=== PATIENT | female | born 1960 | race Caucasian/White ===

== ENCOUNTER 2024-09-30 13:52 | Inpatient (IN) | payer OTHER, SELFPAY ==
[2024-09-30] VITALS (13 sets, daily range): BP systolic 120–163; BP diastolic 44–79; PULSE 74–104; RESP 14–20; TEMP 36.4–37; O2SAT 98–100; BMI 24.4
--- NOTE | ~2024-09-30 | US_ITS ---
US renal BI 10/02/2024 09:19 Indication: Renal insufficiency. Hydronephrosis. Procedure: Ultrasound of the kidneys and bladder using transabdominal technique Comparison: CT dated 09/30/2024 Findings: The right kidney is surgically absent. There is moderate left hydronephrosis. No left renal stone is identified. Left kidney measures 11.6 cm in length. The bladder is decompressed, although grossly unremarkable. Impression: 1: Moderate left hydronephrosis. Reviewed, dictated and finalized at location O. Impression: 1: Moderate left hydronephrosis.
--- NOTE | ~2024-09-30 | XR_ITS ---
EXAMINATION: XR retrograde pyelo w/stent LT DATE: 09/30/2024 20:13 INDICATION: Left internal ureteral stent placement TECHNIQUE: Fluoroscopic images from a left internal ureteral stent placement are submitted for review. 15 seconds of fluoroscopy time. FINDINGS: There is a left double-J internal ureteral stent projecting in expected position, with proximal [place] loop at the level of the renal pelvis and distal loop is not visualized.. IMPRESSION: 1. Left internal ureteral stent placement. Please refer to real-time procedural findings for details. Reviewed, dictated and finalized at location O. IMPRESSION: 1. Left internal ureteral stent placement. Please refer to real-time procedur al findings for details.
--- NOTE | ~2024-09-30 | CT_ITS ---
EXAMINATION: CT abdomen pelvis wo con DATE: 09/30/2024 16:40 INDICATION: Abdominal pain TECHNIQUE: Computed tomography (CT) of the abdomen and pelvis was performed without intravenous contrast. Automated exposure control and iterative reconstruction technique were employed. The dose-length product was 252.05 mGy-cm. COMPARISON: 05/31/2013 FINDINGS: Discoid atelectasis/scarring in the right middle lobe. Heart size is normal. No pericardial or pleural effusion. Calcified right lower lobe nodules consistent with old granulomatous disease. Liver, gallbladder, spleen, pancreas and bilateral adrenal glands are normal. Status post right nephrectomy. Moderate left hydroureteronephrosis extending to a 304 mm calcific lesion likely a ureteral stone at the transition point at the level of L5-S1. Bladder is normal. Distal colectomy with left lower quadrant and colostomy. No dilated bowel to suggest obstruction. The uterus is not identified and has likely been surgically resected. No free intraperitoneal gas or fluid. No pathologically enlarged abdominal or pelvic lymphadenopathy. There is however soft tissue density replacing the presacral fat between the Flash pouch, loops of small bowel in the sacrum. L5 spondylolysis with bilateral pars intra-articular is defects, 7 mm anterolisthesis L5 on S1 and associated severe disc height loss with prominen t degenerative endplate changes at this level. IMPRESSION: 1. Obstructing 304 mm left ureteral stone with moderate left hydroureteronephrosis. 2. Status post right nephrectomy and partial colectomy with left lower quadrant and colostomy. 3. Soft tissue density replacing the presacral fat between the heart and pelvic loops of small bowel in the sacrum which could represent postoperative scarring or potentially recurrent malignancy in the appropriate clinical setting. Correlate with prior clinical/operative history. 4. L5 spondylolysis with bilateral pars interarticularis defects, 6 mm anterolisthesis L5 on S1 and spondylosis. Reviewed, dictated and finalized at location A. IMPRESSION: 1. Obstructing 304 mm left ureteral stone with moderate left hydroureteronephro sis. 2. Status post right nephrectomy and partial colectomy with left lower quadrant and colostomy. 3. Soft tissue density replacing the presacral fat between the heart and pelvic loops of small bowel in the sacrum which could represent postoperative scarrin g or potentially recurrent malignancy in the appropriate clinical setting. Elijah gerber with prior clinical/operative history. 4. L5 spondylolysis with bilateral pars interarticularis defects, 6 mm anteroli sthesis L5 on S1 and spondylosis.
--- OUTSIDE RECORDS SUMMARY | 2024-09-30 13:58 | XMS_ITS | Clinical Summary ---
Author Organization [facility] Address [address] [place] [address] Care Team Providers Care Subway Guard Name Role Phone Abdias Rivera MD Primary Care Provider [phone] Social History Tobacco Use Types Packs/Day Years Used Date Smoking Tobacco: Never Assessed Comments Unknown Sex and Gender Information Value Date Recorded Sex Assigned at Not on file Legal Sex Female 7:21 PM CDT Gender Identity Not on file Sexual Orientation Not on file Plan of Treatment Health Maintenance Due Date Last Done Comments Colorectal Cancer Screening Colonoscopy (10 Years) 1958 Hepatitis C 1976 DTaP, Tdap and Td Vaccines ( 1 - Tdap) 1977 Mammogram Screening 1998 Pneumococcal Vaccine: 50+ Ye ars (1 of 1 - PCV) 2008 Zoster Vaccines (1 of 2) 2008 COVID-19 Vaccine ( - 2023-2 5 season) 2023 Dexa Scan (General) 11/12/2023 RSV Immunization or 60+ Years (1 - 1-dose 75+ series) 2033 Meningococcal B Vaccine Aged Out No l onger eligible based on patient's age to complete this topic Meningococcal Vaccine Aged Out No cody liliana eligible based on patient's age to complete this topic RSV Immunizations Under 20 Months Aged Out No longer eligible based on patient's age to complete this topic Care Teams Subway Guard Relationship Specialty Start Date End Date Abdias Rivera MD PCP - General 07/08/15
--- NOTE | 2024-09-30 15:21 | ED.NAVMDI ---
HPI - Nausea/Vomiting/Diarrhea General Chief complaint: Nausea/Vomiting/Diarrhea Stated complaint: vomitingx7 days, pt has ostomy Time Seen by Provider: 09/30/24 15:20 History of Present Illness HPI Narrative: Patient is a 63-year-old female with history cervical cancer that was metastatic to her colon and kidney requiring colon resection and nephrectomy who presents ER with vomiting. Vomiting ongoing for 7 days. Associated with abdominal cramping. No decrease in urination but has noted that it is darker than typical. No change in ostomy output. No chest pain or chest pressure. Related Data Home Medications ?Medication ?Instructions ?Recorded ?Confirmed ?Last Taken ?Type sertraline 100 mg tablet 100 mg PO DAILY 05/01/24 06/10/24 Unknown History sertraline 25 mg tablet 25 mg PO DAILY 05/01/24 06/10/24 Unknown History trazodone 100 mg tablet 100 mg PO QHS PRN 05/01/24 06/10/24 Unknown History Allergies Allergy/AdvReac Type Severity Reaction Status Date / Time clindamycin Allergy Unknown Swelling Verified 09/30/24 13:53 Review of Systems Review of Systems: All systems reviewed & are unremarkable except as noted in HPI and below Constitutional: Constitutional: Reports no additional constitutional complaints ENT: Reports system reviewed and no additional complaints, except as documented Cardiovascular: Cardiovascular: Reports no additional cardiovascular complaints Respiratory: Respiratory: Reports no additional respiratory complaints Gastrointestinal: Gastrointestinal: Reports no additional gastrointestinal complaints [facility] Past Medical History Medical History (Updated 09/30/24 @ 18:52 by Luigi Rodriguez MD) Hyperlipidemia History of colon cancer Hypertension Acute depression Surgical History Surgical History (Updated 06/10/24 @ 11:14 by Suman Boone DO) Colostomy status H/O section Family History Family History Father COPD (chronic obstructive pulmonary disease) CHF (congestive heart failure) Mother Prediabetes Sibling No problems noted. 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 HEAD: Normocephalic, atraumatic. ENT: Mucous membranes moist. CHEST: Clear to auscultation. No respiratory distress. HEART: Regular rate and rhythm. Normal peripheral pulses. ABDOMEN: Soft, nontender, nondistended. EXTREMITIES: Normal range of motion. No edema. SKIN: Warm, dry, no rash. NEURO: Alert and oriented x3. PSYCH: Normal mood and affect. Course Course Emergency Course: Patient with solitary kidney with renal failure. Discussed with Urology, Dr. Adams, he will take patient to the OR tonight patient will need to stay at the hospital. Hospitalist contacted for admission. Vital Signs Vital signs: Vital Signs Temperature 97.6 F 09/30/24 13:55 Pulse Rate 104 H 09/30/24 13:55 Respiratory Rate 17 09/30/24 13:55 Blood Pressure 146/79 H 09/30/24 13:55 Pulse Oximetry 100 09/30/24 13:55 Oxygen Delivery Room Air 09/30/24 13:55 Temperature 97.6 F 09/30/24 13:55 Pulse Rate 74 09/30/24 18:08 Respiratory Rate 18 09/30/24 18:08 Blood Pressure 163/79 H 09/30/24 18:08 Pulse Oximetry 100 09/30/24 18:08 Oxygen Delivery Room Air 09/30/24 13:55 MDM - Nausea/Vomiting/Diarrhea Lab Data 09/30/24 15:30 09/30/24 15:30 Labs: Lab Results 09/30/24 09/30/24 09/30/24 Range/Units 15:30 15:32 16:52 WBC 6.1 (4.5-10.0) K/mm3 RBC 3.36 L (4.2-5.4) M/mm3 Hgb 9.4 L (12.0-15.0) g/dL Hct 30.3 L (37.0-47.0) % MCV 90.2 (80-100) fl MCH 28.0 (26-34) pg MCHC 31.0 L (32-36) g/dl RDW 15.6 H (11.5-14.5) % Plt Count 142 L (150-375) k/mm3 MPV 9.5 (7.4-10.4) fl Immature Gran % (Auto) 0.5 (0-0.5) % Neut % (Auto) 73.5 H (45.5-73.1) % Lymph % (Auto) 19.5 (18.3-44.2) % [place] % (Auto) 5.8 (2.6-8.5) % Eos % (Auto) 0.2 (0-4.4) % Baso % (Auto) 0.5 (0.2-1.2) % Lymph # (Auto) 1.18 (0.9-3.2) K/mm3 [place] # (Auto) 0.4 (0.1-0.6) K/mm3 Eos # (Auto) 0.0 (0-0.3) K/mm3 Baso # (Auto) 0.0 (0.0-0.1) K/mm3 Abs Immat Gran (auto) 0.03 (0.00-0.031) K/mm3 Absolute Neuts (auto) 4.5 (1.3-6.7) K/mm3 Absolute Nucleated RBC 0.000 (0.0-0.012) K/mm3 Nucleated RBC % 0.0 (0.0-0.2) % Sodium 142 (137-145) mmol/L Potassium 4.4 (3.4-5.0) mmol/L Chloride 108 H (98-107) mmol/L Carbon Dioxide 9 L (22-30) mmol/L Anion Gap 25 H (4-12) mmol/L BUN 77 H (7-17) mg/dL Creatinine 7.80 H (0.7-1.0) mg/dL Estim Creat Clear Calc 6 ml/min Estimated GFR 5 L (59 - ) Glucose 86 (65-110) mg/dL Lactic Acid 1.1 (0.7-2.0) mmol/L Calcium 9.8 (8.4-10.2) mg/dL Total Bilirubin 0.6 (0.2-1.3) mg/dL AST 22 (14-36) U/L ALT 12 (6-35) U/L Alkaline Phosphatase 61 (38-126) U/L Total Protein 8.8 H (6.3-8.2) g/dL Albumin 4.9 (3.5-5.1) g/dL Lipase 523 H (23-300) U/L Urine Color Yellow (Yellow) Urine Appearance Cloudy H (Clear) Urine pH 5.0 (5.0-9.0) Ur Specific [place] 1.012 (1.001-1.035) Urine Protein 1+ H (Negative) mg/dL Urine Glucose (UA) Negative (Negative) mg/dL Urine Ketones Trace H (Negative) mg/dL Ur Blood (Man) Trace (Negative) Urine Nitrate Negative (Negative) Urine Bilirubin Negative (Negative) Urine Urobilinogen 0.2 (<2.0) mg/dL Leukocyte Esterase Rfl 2+ H (Negative) ERASTO/UL Urine RBC 0-2 (0-2) /hpf Urine WBC 11-20 H (0-3) /hpf Ur Squamous Epith Cells Occasional (Few) /hpf Urine Bacteria None seen /hpf Urine Casts 3-5 Imaging Data Radiologist's impression: ITS Impressions Abdomen/Pelvis CT 09/30/24 18:05 IMPRESSION: 1. Obstructing 304 mm left ureteral stone with moderate left hydroureteronephrosis. 2. Status post right nephrectomy and partial colectomy with left lower quadrant and colostomy. 3. Soft tissue density replacing the presacral fat between the heart and pelvic loops of small bowel in the sacrum which could represent postoperative scarring or potentially recurrent malignancy in the appropriate clinical setting. Correlate with prior clinical/operative history. 4. L5 spondylolysis with bilateral pars interarticularis defects, 6 mm anterolisthesis L5 on S1 and spondylosis. Discharge Plan Discharge Clinical Impression: FABIEN (acute kidney injury), Ureterolithiasis Patient Disposition: Still a Patient Condition: Stable Patient Language: [place] Verdean Prescriptions: No Action trazodone 100 mg tablet 100 mg PO QHS PRN sertraline 25 mg tablet 25 mg PO DAILY sertraline 100 mg tablet 100 mg PO DAILY rosuvastatin 20 mg tablet 20 mg PO DAILY Qty: 90 1RF cetirizine 10 mg tablet 10 mg PO DAILY PRN (Reason: allergy symptoms) Qty: 90 0RF Follow-up/Referrals: PHYSICIAN,COMMERCIAL REAL ESTATE MANAGER [Primary Care Provider, Internal Medicine]
[2024-09-30 15:37] LABS: Hematocrit 30.3 % (37.0-47.0); Hemoglobin 9.4 g/dL (12.0-15.0); Immature Granulocyte Percent A 0.5 % (0-0.5); Lymphocytes Absolute Auto 1.18 K/mm3 (0.9-3.2); Mean Corpuscular HGB Conc 31.0 g/dl (32-36); Mean Corpuscular Hemoglobin 28.0 pg (26-34); Mean Corpuscular Volume 90.2 fl (80-100); Nucleated Red Blood Cells Absolute Auto 0.000 K/mm3 (0.0-0.012); Nucleated Red Blood Cells Perc 0.0 % (0.0-0.2); Platelet Count Result 142 k/mm3 (150-375); Red Blood Count 3.36 M/mm3 (4.2-5.4); White Blood Count 6.1 K/mm3 (4.5-10.0)
[2024-09-30 15:50] LABS: Alanine Aminotransferase 12 U/L (6-35); Albumin Level 4.9 g/dL (3.5-5.1); Alkaline Phosphatase 61 U/L (38-126); Anion Gap 25 mmol/L (4-12); Aspartate Amino Transferase 22 U/L (14-36); Bilirubin,Total 0.6 mg/dL (0.2-1.3); Blood Urea Nitrogen 77 mg/dL (7-17); Calcium 9.8 mg/dL (8.4-10.2); Carbon Dioxide 9 mmol/L (22-30); Chloride 108 mmol/L (98-107); Estimated CRCL calculation 6 ml/min; Estimated Glomerular Filt Rate 5; Glucose 86 mg/dL (65-110); Lipase 523 U/L (23-300); Potassium 4.4 mmol/L (3.4-5.0); Sodium 142 mmol/L (137-145); Total Protein 8.8 g/dL (6.3-8.2)
--- OUTSIDE RECORDS SUMMARY | 2024-09-30 16:18 | XMS_ITS | Clinical Summary ---
Author Organization [facility] Address [address] [place] [id number] Care Team Providers Care Chemical Plant Technical Director Name Role Phone Abdias Rivera MD Primary Care Provider [phone] Social History Tobacco Use Types Packs/Day Years [...] age to complete this topic Care Teams Chemical Plant Technical Director Relationship Specialty Start Date End Date Abdias Rivera MD PCP - General 07/08/15
[2024-09-30] MEDS: SODIUM CHLORIDE 0.9% IV 1,000 ML 999 ML IV CONT (16:29)
[2024-09-30 17:04] LABS: Add Urine Microscopic? YES; Appearance Urine Cloudy (Clear); Glucose Urine UA Negative (Negative); Leukocyte Esterase Ur 2+ LEU/UL (Negative); Nitrate Urine Negative (Negative); Specific Grav Ur 1.012 (1.001-1.035)
[2024-09-30] MEDS: ONDANSETRON INJ 4 MG/2 ML VIAL IV PUSH (18:08)
[2024-09-30] MEDS: MORPHINE SULFATE (*CRX) 4 MG/ML INJ IV PUSH (18:51)
--- NOTE | 2024-09-30 19:41 | WPDURCON ---
Assessment and Plan Assessment and plan (1) Ureterolithiasis: Code(s): N20.1 - Calculus of ureter Status: Acute Assessment and Plan: LEFT ureteral stone in a solitary kidney: proceed with left ureteral stent placement with delayed stone treatment. Reviewed stent irritation, risks of surgery, and need for follow up stone treatment. All questions answered proceed as scheduled. Urology Consult Note HPI Date Seen: 09/30/24 Requesting Physician: Barrera Adams MD Primary Care Provider: SORTING GRAPPLE OPERATOR PHYSICIAN Consult Narrative Narrative: Amanda Mccabe is a 63 year old female with a history of metastatic cervical cancer, prior right nephrectomy related to malignancy, and a current left sided obstructing 6 mm right mid ureteral stone, significant hydronephrosis, and a creatinine over 7 (baseline 1.03). She has had pain and emesis for about a week. No signs of infection. Review of Systems Review of Systems: All systems reviewed & are unremarkable except as noted in HPI and below (HPI) PMFSH Past Medical History Medical History Hyperlipidemia History of colon cancer Hypertension Acute depression Surgical History Surgical History Colostomy status H/O section Family History Family History Father COPD (chronic obstructive pulmonary disease) CHF (congestive heart failure) Mother Prediabetes Sibling No problems noted. 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 Gender identity (if verbalized by the patient): Female Meds Home Medications and Allergies Home Medications ?Medication ?Instructions ?Recorded ?Confirmed ?Type sertraline 100 mg tablet 100 mg PO DAILY 05/01/24 06/10/24 History sertraline 25 mg tablet 25 mg PO DAILY 05/01/24 06/10/24 History trazodone 100 mg tablet 100 mg PO QHS PRN 05/01/24 06/10/24 History rosuvastatin 20 mg tablet 20 mg PO DAILY #90 tabs 05/28/24 06/10/24 Rx cetirizine 10 mg tablet 10 mg PO DAILY PRN allergy 06/20/24 Rx symptoms #90 tabs Allergies Allergy/AdvReac Type Severity Reaction Status Date / Time clindamycin Allergy Unknown Swelling Verified 09/30/24 13:53 Vital Signs Vital Signs - 24 hr 09/30/24 13:55 09/30/24 15:47 09/30/24 16:31 Temperature 36.4 C Pulse Rate 104 H 74 77 Respiratory Rate 17 15 20 Blood Pressure 146/79 H 160/77 H 163/74 H Pulse Oximetry 100 100 100 Oxygen Delivery Room Air 09/30/24 18:08 Temperature Pulse Rate 74 Respiratory Rate 18 Blood Pressure 163/79 H Pulse Oximetry 100 Oxygen Delivery Exam Narrative: alert oriented conversive non toxic, no focal deficits Results Labs 09/30/24 15:30 09/30/24 15:30 Labs: Short CBC 09/30/24 Range/Units 15:30 WBC 6.1 (4.5-10.0) K/mm3 Hgb 9.4 L (12.0-15.0) g/dL Hct 30.3 L (37.0-47.0) % Plt Count 142 L (150-375) k/mm3 BMP 09/30/24 15:30 Sodium 142 Potassium 4.4 Chloride 108 H Carbon Dioxide 9 L BUN 77 H Creatinine 7.80 H Glucose 86 Calcium 9.8 Liver Function 09/30/24 Range/Units 15:30 Total Bilirubin 0.6 (0.2-1.3) mg/dL AST 22 (14-36) U/L ALT 12 (6-35) U/L Alkaline Phosphatase 61 (38-126) U/L Albumin 4.9 (3.5-5.1) g/dL Urine 09/30/24 Range/Units 16:52 Urine Color Yellow (Yellow) Urine Appearance Cloudy H (Clear) Urine pH 5.0 (5.0-9.0) Ur Specific [place] 1.012 (1.001-1.035) Urine Protein 1+ H (Negative) mg/dL Urine Glucose (UA) Negative (Negative) mg/dL
--- NOTE | 2024-09-30 19:45 | WPDANESEPPF ---
Anes - Initial Pre Proc Eval Procedure: Operation Date: 09/30/24 02:00 Proposed Procedures p Flexible Cystoscopy - Barrera Adams MD Date/Time: 09/30/24 19:45 Surgeon: Barrera Adams MD Pre Op Diagnosis: obstructing left ureteral stone Pre Op Diagnosis: vomitingx7 days, pt has ostomy Patient Data Age: 63 Gender: F Height: 1.63 m Weight: 62.8 kg Last Vital Signs Temp 36.4 C 09/30/24 13:55 Pulse 74 09/30/24 18:08 Resp 18 09/30/24 18:08 BP 163/79 H 09/30/24 18:08 Pulse Ox 100 09/30/24 18:08 O2 Del Method Room Air 09/30/24 13:55 Allergies Allergy/AdvReac Type Severity Reaction Status Date / Time clindamycin Allergy Unknown Swelling Verified 09/30/24 13:53 Home Medications ?Medication ?Instructions ?Recorded ?Confirmed ?Type sertraline 100 mg tablet 100 mg PO DAILY 05/01/24 06/10/24 History sertraline 25 mg tablet 25 mg PO DAILY 05/01/24 06/10/24 History trazodone 100 mg tablet 100 mg PO QHS PRN 05/01/24 06/10/24 History rosuvastatin 20 mg tablet 20 mg PO DAILY #90 tabs 05/28/24 06/10/24 Rx cetirizine 10 mg tablet 10 mg PO DAILY PRN allergy 06/20/24 Rx symptoms #90 tabs Laboratory Tests 09/30/24 09/30/24 09/30/24 15:30 15:32 16:52 WBC 6.1 K/mm3 (4.5-10.0) RBC 3.36 L M/mm3 (4.2-5.4) Hgb 9.4 L g/dL (12.0-15.0) Hct 30.3 L % (37.0-47.0) MCV 90.2 fl (80-100) MCH 28.0 pg (26-34) MCHC 31.0 L g/dl (32-36) RDW 15.6 H % (11.5-14.5) Plt Count 142 L k/mm3 (150-375) MPV 9.5 fl (7.4-10.4) Immature Gran % (Auto) 0.5 % (0-0.5) Neut % (Auto) 73.5 H % (45.5-73.1) Lymph % (Auto) 19.5 % (18.3-44.2) [place] % (Auto) 5.8 % (2.6-8.5) Eos % (Auto) 0.2 % (0-4.4) Baso % (Auto) 0.5 % (0.2-1.2) Lymph # (Auto) 1.18 K/mm3 (0.9-3.2) [place] # (Auto) 0.4 K/mm3 (0.1-0.6) Eos # (Auto) 0.0 K/mm3 (0-0.3) Baso # (Auto) 0.0 K/mm3 (0.0-0.1) Abs Immat Gran (auto) 0.03 K/mm3 (0.00-0.031) Absolute Neuts (auto) 4.5 K/mm3 (1.3-6.7) Absolute Nucleated RBC 0.000 K/mm3 (0.0-0.012) Nucleated RBC % 0.0 % (0.0-0.2) Sodium 142 mmol/L (137-145) Potassium 4.4 mmol/L (3.4-5.0) Chloride 108 H mmol/L (98-107) Carbon Dioxide 9 L mmol/L (22-30) Anion Gap 25 H mmol/L (4-12) BUN 77 H mg/dL (7-17) Creatinine 7.80 H mg/dL (0.7-1.0) Estim Creat Clear Calc 6 ml/min Estimated GFR 5 L (59 - ) Glucose 86 mg/dL (65-110) Lactic Acid 1.1 mmol/L (0.7-2.0) Calcium 9.8 mg/dL (8.4-10.2) Total Bilirubin 0.6 mg/dL (0.2-1.3) AST 22 U/L (14-36) ALT 12 U/L (6-35) Alkaline Phosphatase 61 U/L (38-126) Total Protein 8.8 H g/dL (6.3-8.2) Albumin 4.9 g/dL (3.5-5.1) Lipase 523 H U/L (23-300) Urine Color Yellow (Yellow) Urine Appearance Cloudy H (Clear) Urine pH 5.0 (5.0-9.0) Ur Specific [place] 1.012 (1.001-1.035) Urine Protein 1+ H mg/dL (Negative) Urine Glucose (UA) Negative mg/dL (Negative) Urine Ketones Trace H mg/dL (Negative) Ur Blood (Man) Trace (Negative) Urine Nitrate Negative (Negative) Urine Bilirubin Negative (Negative) Urine Urobilinogen 0.2 mg/dL (<2.0) Leukocyte Esterase Rfl 2+ H ERASTO/UL (Negative) Urine RBC 0-2 /hpf (0-2) Urine WBC 11-20 H /hpf (0-3) Ur Squamous Epith Cells Occasional /hpf (Few) Urine Bacteria None seen /hpf Urine Casts 3-5 Patient hx anesthesia problems: none Family hx anesthesia problems: none Results Review: All pre-operative results and documents have been reviewed as part of the pre-operative evaluation. [facility] Past Medical History Medical History Hyperlipidemia History of colon cancer Hypertension Acute depression Surgical History Surgical History Colostomy status H/O section Family History Family History Father COPD (chronic obstructive pulmonary disease) CHF (congestive heart failure) Mother Prediabetes Sibling No problems noted. 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 Informed Consent: The patient's anesthetic plan and its attendant risks and benefits were discussed with the patient/family/POA. Questions were solicited and answers provided to the satisfaction of the patient/family/POA.
--- NOTE | 2024-09-30 19:49 | WPDHPUPDATE1 ---
History and Physical Update Update Date/Time: 09/30/24 19:49 History and Physical has been reviewed, including an updated exam of the patient. There are NO changes in the patient's condition. Risks, benefits, and alternatives have been discussed and questions answered. Patient agrees to proceed with procedure.
--- NOTE | 2024-09-30 20:12 | P.OP_ITS ---
Procedure Note - Detailed Date of Procedure 09/30/24 Pre-op Diagnosis left ureteral stone solitary kidney Post-op Diagnosis Same Procedure Performed cysto left ureteral stent placement Surgeon Barrera Adams MD Anesthesia General Indications Obstructing stone with acute renal failure in a solitary kidney Findings Left stent placed without complication Description of Procedure Patient was brought back to the operating room, prepped draped and padded. Cefazolin was adminsitered. Time out was performed. Bladder was entered with rigid cystoscope and was without abnormality. Left ureteral orifice was identi fied and a Sensor wire was advanced curling in the renal pelvis. Over this a 6F variable length stent was advanced into good position. The stone was not easily visible on fluoroscopy, and she'll need a ureteroscopy either way given the solitary kidney. Bladder was drained and she was sent to recovery. Implants left ureteral stent
[2024-09-30] MEDS: LACTATED RINGERS 1,000 ML 30 ML IV CONT (20:18)
--- NOTE | 2024-09-30 21:43 | PM.IMHP ---
H&P: HPI History of Present Illness Date/Time: 09/30/24 21:43 Chief Complaint: N/V for 7 days, Acute Renal Failure and obstructive uropathy in singular kidney Narrative: This is a 63-year-old female patient who was admitted to the hospital due to acute renal failure. Patient presented to the emergency department complaining of nausea and vomiting for 7 days as well as left-sided abdominal pain. On chemistry panel patient found to have creatinine of 7.8. CT scan abdomen pelvis without contrast identifies an obstructing left ureteral stone with hydronephrosis and hydroureter. Patient previously underwent total right nephrectomy and right partial colectomy with colostomy placement for metastatic cervical cancer with spread to the colon and right kidney. Urology was consulted urgently by the emergency department and patient went to the operating room for left ureteral stent placement. Patient is evaluated postoperatively in her assigned room. Initial labs showed an anion gap of 25 with carbon dioxide down to 9. This obstruction has likely been in place for several days leading to her nausea and vomiting. After stent placement patient denies nausea and denies pain. She states that she has been able to drink some water and hold it down. Patient reports mild left ankle swelling which is chronic and comes and goes. She also reports that postprocedure she is noticing hematuria. She denies dysuria fever or chills. Additional medical history noted for pre diabetes, anxiety, depression, insomnia and elevated cholesterol. Additional surgical history elicited includes total hysterectomy. Patient admitted with IV fluids infusing to try to induce renal clearance of toxins and improve metabolic acidosis. Review of Systems Review of Systems: All systems reviewed & are unremarkable except as noted in HPI and below PMFSH Past Medical History Medical History Hyperlipidemia History of colon cancer Hypertension Acute depression Surgical History Surgical History Colostomy status H/O section Family History Family History Father COPD (chronic obstructive pulmonary disease) CHF (congestive heart failure) Mother Prediabetes Sibling No problems noted. 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 Gender identity (if verbalized by the patient): Female Spiritual care concerns: No Meds Home Medications and Allergies Home Medications ?Medication ?Instructions ?Recorded ?Confirmed ?Type sertraline 100 mg tablet 100 mg PO DAILY 05/01/24 09/30/24 History sertraline 25 mg tablet 25 mg PO DAILY 05/01/24 09/30/24 History trazodone 100 mg tablet 100 mg PO QHS PRN insomnia 05/01/24 09/30/24 History rosuvastatin 20 mg tablet 20 mg PO DAILY #90 tabs 05/28/24 09/30/24 Rx cetirizine 10 mg tablet 10 mg PO DAILY PRN allergy 06/20/24 09/30/24 Rx symptoms #90 tabs Allergies Allergy/AdvReac Type Severity Reaction Status Date / Time clindamycin Allergy Unknown Swelling Verified 09/30/24 13:53 Vital Signs Vital Signs - 24 hr 09/30/24 13:55 09/30/24 15:47 09/30/24 16:31 Temperature 36.4 C Pulse Rate 104 H 74 77 Respiratory Rate 17 15 20 Blood Pressure 146/79 H 160/77 H 163/74 H Pulse Oximetry 100 100 100 Oxygen Delivery Room Air Oxygen Flow Rate 09/30/24 18:08 09/30/24 20:18 09/30/24 20:30 Temperature 37.0 C Pulse Rate 74 92 81 Respiratory Rate 18 18 16 Blood Pressure 163/79 H 120/44 L 138/65 Pulse Oximetry 100 100 100 Oxygen Delivery Simple Face Mask Simple Face Mask Oxygen Flow Rate 8 8 09/30/24 20:34 09/30/24 20:45 09/30/24 21:00 Temperature Pulse Rate 79 86 Respiratory Rate 14 18 Blood Pressure 152/75 H 145/58 H Pulse Oximetry 99 99 Oxygen Delivery Room Air Room Air Room Air Oxygen Flow Rate 09/30/24 21:15 08/25/25 21:30 Temperature 36.9 C Pulse Rate 76 80 Respiratory Rate 14 18 Blood Pressure 146/54 H 147/70 H Pulse Oximetry 98 99 Oxygen Delivery Room Air Room Air Oxygen Flow Rate Exam Narrative: GENERAL: Well-appearing, well-nourished, and in no acute distress. HEAD: Normocephalic, atraumatic. ENT:? Mucous membranes moist. CHEST: Clear to auscultation.? No respiratory distress. HEART: Regular rate and rhythm. ? Normal peripheral pulses. ABDOMEN: Soft, nontender, nondistended. Colostomy in place EXTREMITIES: Normal range of motion. Trace left ankle edema SKIN: Warm dry normal color NEURO: Alert and oriented x3. Moves all extremities well PSYCH: Normal mood and affect H&P: Results Labs Labs: Short CBC 09/30/24 Range/Units 15:30 WBC 6.1 (4.5-10.0) K/mm3 Hgb 9.4 L (12.0-15.0) g/dL Hct 30.3 L (37.0-47.0) % Plt Count 142 L (150-375) k/mm3 BMP 09/30/24 15:30 Sodium 142 Potassium 4.4 Chloride 108 H Carbon Dioxide 9 L BUN 77 H Creatinine 7.80 H Glucose 86 Calcium 9.8 Liver Function 09/30/24 Range/Units 15:30 Total Bilirubin 0.6 (0.2-1.3) mg/dL AST 22 (14-36) U/L ALT 12 (6-35) U/L Alkaline Phosphatase 61 (38-126) U/L Albumin 4.9 (3.5-5.1) g/dL Urine 09/30/24 Range/Units 16:52 Urine Color Yellow (Yellow) Urine Appearance Cloudy H (Clear) Urine pH 5.0 (5.0-9.0) Ur Specific [place] 1.012 (1.001-1.035) Urine Protein 1+ H (Negative) mg/dL Urine Glucose (UA) Negative (Negative) mg/dL Pulse Oximetry SpO2 results: 98-100% on room air Attestation: I personally reviewed and interpreted this pulse oximetry as follows: Interpretation: No need for supplemental oxygenation at this time Imaging CT scan - abdomen: Radiologist's impression: EXAMINATION: CT abdomen pelvis wo con DATE: 09/30/2024 16:40 INDICATION: Abdominal pain TECHNIQUE: Computed tomography (CT) of the abdomen and pelvis was performed without intravenous contrast. Automated exposure control and iterative reconstruction technique were employed. The dose-length product was 252.05 mGy-cm. COMPARISON: 05/31/2013 FINDINGS: Discoid atelectasis/scarring in the right middle lobe. Heart size is normal. No pericardial or pleural effusion. Calcified right lower lobe nodules consistent with old granulomatous disease. Liver, gallbladder, spleen, pancreas and bilateral adrenal glands are normal. Status post right nephrectomy. Moderate left hydroureteronephrosis extending to a 304 mm calcific lesion likely a ureteral stone at the transition point at the level of L5-S1. Bladder is normal. Distal colectomy with left lower quadrant and colostomy. No dilated bowel to suggest obstruction. The uterus is not identified and has likely been surgically resected. No free intraperitoneal gas or fluid. No pathologically enlarged abdominal or pelvic lymphadenopathy. There is however soft tissue density replacing the presacral fat between the Flash pouch, loops of small bowel in the sacrum. L5 spondylolysis with bilateral pars intra-articular is defects, 7 mm anterolisthesis L5 on S1 and associated severe disc height loss with prominent degenerative endplate changes at this level. IMPRESSION: 1. Obstructing 304 mm left ureteral stone with moderate left hydroureteronephrosis. 2. Status post right nephrectomy and partial colectomy with left lower quadrant and colostomy. 3. Soft tissue density replacing the presacral fat between the heart and pelvic loops of small bowel in the sacrum which could represent postoperative scarring or potentially recurrent malignancy in the appropriate clinical setting. Correlate with prior clinical/operative history. 4. L5 spondylolysis with bilateral pars interarticularis defects, 6 mm anterolisthesis L5 on S1 and spondylosis. Reviewed, dictated and finalized at location A. Assessment and Plan Assessment and plan (1) FABIEN (acute kidney injury): Code(s): N17.9 - Acute kidney failure, unspecified Status: Acute Assessment and Plan: Acute renal failure, Creatinine 7.8 with usual baseline around 1 per Urology record N/V for 7 days prior to ER presentation Abnormal labs and left flank pain prompted CT scan Non-contrast CT scan showed obstructing left ureteral stone with hydronephrosis Urology came in for urgent stent placement in OR Will consult Nephrology to see patient tomorrow IV fluid 100 mL/hr post operatively Patient tolerating oral fluids post operatively (2) Ureterolithiasis: Code(s): N20.1 - Calculus of ureter Status: Acute Assessment and Plan: 6 mm stone in mid left ureter with single kidney status Urology came in for urgent stent placement in OR She will come back for stone management after medical stabilization Avoid NSAIDs (would do anyway due to acute renal failure) (3) Prediabetes: Code(s): R73.03 - Prediabetes Status: Chronic Assessment and Plan: -HGB A1c 6.0 in May 2024 (4) History of colon cancer: Code(s): Z85.038 - Personal history of other malignant neoplasm of large intestine Status: Chronic Assessment and Plan: S/P resection and colostomy due to previously treated colon cancer (5) Hyperlipidemia: Code(s): E78.5 - Hyperlipidemia, unspecified Status: Chronic Assessment and Plan: Continue home medications (6) Single kidney: Code(s): Z90.5 - Acquired absence of kidney Status: Chronic Assessment and Plan: S/P right nephrectomy for mass/colon cancer Quality VTE Prophylaxis VTE prophylaxis: mechanical ordered Hospitalist MIPS Advance Care Plan I have confirmed that the patient's Advanced Care Plan is present, code status is documented, or surrogate decision maker is listed in patient medical record.: Yes Medication Reconciliation I have utilized all available resources to obtain, update and review the patients current medications (includes all prescriptions, OTC, herbals, cannabis, and nutritional supplements).: Yes
--- NOTE | 2024-09-30 21:59 | ADMGEN ---
This patient, Amanda Mccabe, was admitted to IMU Room 200-01. Patient/family oriented to hospital policies and general routines including ID bracelet, bed and alarms, visiting hours, pain management, procedures, bathroom and other care routines, personal items, smoking policy, room service/diet, and visiting hours. Information on how to activate the Rapid Response Team has been discussed. Patient/Family are encouraged to report perceived risks to care and to ask questions if they do not understand what they are told or what they should do.
[2024-09-30 23:41] LABS: Albumin Level 4.2 g/dL (3.5-5.1); Anion Gap 19 mmol/L (4-12); Blood Urea Nitrogen 74 mg/dL (7-17); Calcium 9.1 mg/dL (8.4-10.2); Carbon Dioxide 12 mmol/L (22-30); Chloride 112 mmol/L (98-107); Estimated CRCL calculation 6 ml/min; Estimated Glomerular Filt Rate 6; Glucose 79 mg/dL (65-110); Magnesium 2.0 mg/dL (1.6-2.3); Potassium 3.9 mmol/L (3.4-5.0); Sodium 143 mmol/L (137-145)
[2024-10-01] VITALS (15 sets, daily range): BP systolic 123–142; BP diastolic 57–72; PULSE 67–87; RESP 14–17; TEMP 36.6–36.8; O2SAT 95–100; BMI 24.4
[2024-10-01] MEDS: SODIUM CHLORIDE 0.9% IV 1,000 ML 100 ML IV CONT ×3 (00:06→15:57)
[2024-10-01 04:17] LABS: Hematocrit 26.9 % (37.0-47.0); Hemoglobin 8.2 g/dL (12.0-15.0); Immature Granulocyte Percent A 1.4 % (0-0.5); Lymphocytes Absolute Auto 1.27 K/mm3 (0.9-3.2); Mean Corpuscular HGB Conc 30.5 g/dl (32-36); Mean Corpuscular Hemoglobin 28.0 pg (26-34); Mean Corpuscular Volume 91.8 fl (80-100); Nucleated Red Blood Cells Absolute Auto 0.000 K/mm3 (0.0-0.012); Nucleated Red Blood Cells Perc 0.0 % (0.0-0.2); Platelet Count Result 119 k/mm3 (150-375); Red Blood Count 2.93 M/mm3 (4.2-5.4); White Blood Count 5.9 K/mm3 (4.5-10.0)
[2024-10-01 04:45] LABS: Alanine Aminotransferase 8 U/L (6-35); Albumin Level 3.9 g/dL (3.5-5.1); Alkaline Phosphatase 53 U/L (38-126); Anion Gap 19 mmol/L (4-12); Aspartate Amino Transferase 18 U/L (14-36); Bilirubin,Total 0.4 mg/dL (0.2-1.3); Blood Urea Nitrogen 72 mg/dL (7-17); Calcium 8.7 mg/dL (8.4-10.2); Carbon Dioxide 13 mmol/L (22-30); Chloride 111 mmol/L (98-107); Estimated CRCL calculation 7 ml/min; Estimated Glomerular Filt Rate 6; Glucose 74 mg/dL (65-110); Magnesium 2.0 mg/dL (1.6-2.3); Potassium 3.6 mmol/L (3.4-5.0); Sodium 143 mmol/L (137-145); Total Protein 6.7 g/dL (6.3-8.2)
[2024-10-01] MEDS: MORPHINE SULFATE (*CRX) 2 MG/ML INJ IV PUSH ×3 (05:32→21:35)
--- NOTE | 2024-10-01 08:36 | P.PNIM_ITS ---
Progress Note: A&P Assessment and Plan (1) FABIEN (acute kidney injury): Code(s): N17.9 - Acute kidney failure, unspecified Status: Deleted Assessment and Plan: - admit Creatinine 7.8 with usual baseline around 1 per Urology record - N/V for 7 days prior to ER presentation - history of R nephrectomy - Non-contrast CT scan showed obstructing left ureteral stone with hydronephrosis -management of ureteral stone as below - nephrology consulted - Cr improving today - IV fluid 100 mL/hr post operatively - avoid NSAIDs (2) Ureterolithiasis: Code(s): N20.1 - Calculus of ureter Status: Acute Assessment and Plan: - 6 mm stone in mid left ureter with single kidney status - s/p urgent L ureteral stent placement by Dr. Adams 10/01/24 - plan for definitive for stone management after medical stabilization (3) UTI (urinary tract infection): Code(s): N39.0 - Urinary tract infection, site not specified Status: Acute Assessment and Plan: - UA with 2+ LE, 11-20 WBC - patient complaining of dysuria - received Ancef perioperatively. Start IV Rocephin, await urine culture. (4) History of colon cancer: Code(s): Z85.038 - Personal history of other malignant neoplasm of large intestine Status: Chronic Assessment and Plan: -S/P resection and colostomy due to previously treated colon cancer (5) Single kidney: Code(s): Z90.5 - Acquired absence of kidney Status: Chronic Assessment and Plan: -S/P right nephrectomy for mass/colon cancer (6) Anemia: Code(s): D64.9 - Anemia, unspecified Status: Acute Assessment and Plan: - Hgb 8.2 today. 9.4 on admit. No baseline to review. - likely due to hematuria and hemodilution - monitor CBC - transfuse Hgb <7 Plan Abnormal imaging: CT showed Soft tissue density replacing the presacral fat between the heart and pelvic loops of small bowel in the sacrum which could represent postoperative scarring or potentially recurrent malignancy in the appropriate clinical setting. Correlate with prior clinical/operative history. May benefit from repeat imaging as outpatient. DVT prophylaxis: SCDs Disposition: home in 2-3 days pending improvement of renal function Subjective Date/time seen: 10/01/24 08:36 Interval history: This is a 63-year-old female patient who was admitted to the hospital due to acute renal failure. Patient presented to the emergency department complaining of nausea and vomiting for 7 days as well as left-sided abdominal pain. Patient seen and examined at bedside. Having a mild headache. Denies flank or abdominal pain. Having some mild hematuria post-op. Review of Systems Review of Systems: All systems reviewed & are unremarkable except as noted in HPI and below Exam Narrative: General: NAD Eyes: EOMI ENT: neck supple Cardiovascular: Regular rate and rhythm Respiratory: Clear to auscultation, respirations even and unlabored on RA Gastrointestinal: Soft, non tender Genitourinary: no suprapubic tenderness Musculoskeletal: No edema Skin: warm, dry Neuro: Alert. Psych: Mood appropriate Objective Data Vital Signs Vital Signs: Vital Signs - 24 hr 09/30/24 13:55 09/30/24 15:47 09/30/24 16:31 Temperature 97.6 F Pulse Rate 104 H 74 77 Respiratory Rate 17 15 20 Blood Pressure 146/79 H 160/77 H 163/74 H Pulse Oximetry 100 100 100 Oxygen Delivery Room Air Oxygen Flow Rate 09/30/24 18:08 09/30/24 20:18 09/30/24 20:30 Temperature 98.6 F Pulse Rate 74 92 81 Respiratory Rate 18 18 16 Blood Pressure 163/79 H 120/44 L 138/65 Pulse Oximetry 100 100 100 Oxygen Delivery Simple Face Mask Simple Face Mask Oxygen Flow Rate 8 8 09/30/24 20:34 09/30/24 20:45 09/30/24 21:00 Temperature Pulse Rate 79 86 Respiratory Rate 14 18 Blood Pressure 152/75 H 145/58 H Pulse Oximetry 99 99 Oxygen Delivery Room Air Room Air Room Air Oxygen Flow Rate 09/30/24 21:15 09/30/24 21:30 09/30/24 22:00 Temperature 98.5 F Pulse Rate 76 80 80 Respiratory Rate 14 18 Blood Pressure 146/54 H 147/70 H Pulse Oximetry 98 99 Oxygen Delivery Room Air Room Air Oxygen Flow Rate 09/30/24 22:19 09/30/24 22:33 09/30/24 23:38 Temperature 97.8 F Pulse Rate 83 80 Respiratory Rate 17 17 Blood Pressure 154/70 H 152/72 H Pulse Oximetry 99 100 Oxygen Delivery Room Air Oxygen Flow Rate 10/01/24 00:00 10/01/24 00:00 10/01/24 02:00 Temperature Pulse Rate 87 67 Respiratory Rate Blood Pressure Pulse Oximetry Oxygen Delivery Room Air Oxygen Flow Rate 10/01/24 04:00 10/01/24 04:00 10/01/24 04:00 Temperature 97.8 F Pulse Rate 72 75 Respiratory Rate 17 Blood Pressure 131/72 Pulse Oximetry 95 Oxygen Delivery Room Air Oxygen Flow Rate 10/01/24 06:00 10/01/24 07:30 Temperature 98.3 F Pulse Rate 69 81 Respiratory Rate 14 Blood Pressure 127/58 L Pulse Oximetry 100 Oxygen Delivery Oxygen Flow Rate Intake/Output Intake/Output: Intake & Output 09/28/24 09/29/24 09/30/24 10/01/24 23:59 23:59 23:59 23:59 Intake Total 1200 Output Total 900 Balance 1200 -900 Meds/Results Medications: Active Medications Generic Name Dose Route Start Last Admin Trade Name Freq PRN Reason Stop Dose Admin Sodium Chloride 1,000 mls @ 100 mls/hr 09/30/24 19:15 10/01/24 00:06 Normal Saline Iv IV CONT 100 mls/hr .Q10H YUDELKA Administration Loratadine 10 mg 09/30/24 22:38 Loratadine 10 Mg Tablet PO DAILY PRN allergy symptoms Morphine Sulfate 2 mg 09/30/24 19:11 10/01/24 05:32 Morphine Sulfate (*Crx) 2 Mg/Ml Inj IV PUSH 2 mg Q2H PRN Administration Pain Rated 7-10 Ondansetron HCl 4 mg 09/30/24 19:11 Ondansetron Inj 4 Mg/2 Ml Vial IV PUSH Q4H PRN Nausea Rosuvastatin Calcium 20 mg 10/01/24 09:00 Rosuvastatin 20 Mg Tablet PO DAILY YUDELKA Sertraline HCl 100 mg 10/01/24 09:00 Sertraline Hcl 50 Mg Tablet PO DAILY YUDELKA Sertraline HCl 25 mg 10/01/24 09:00 Sertraline Hcl 25 Mg Tablet PO DAILY YUDELKA Sodium Bicarbonate 1,300 mg 10/01/24 09:00 Sodium Bicarbonate Tab 650 Mg Tablet PO 10/03/24 17:01 BID YUDELKA Trazodone HCl 100 mg 09/30/24 22:33 Trazodone Hcl 50 Mg Tablet PO QHS PRN Insomnia Radiology Results: ITS Impressions Abdomen/Pelvis CT 09/30/24 18:05 IMPRESSION: 1. Obstructing 304 mm left ureteral stone with moderate left hydroureteronephrosis. 2. Status post right nephrectomy and partial colectomy with left lower quadrant and colostomy. 3. Soft tissue density replacing the presacral fat between the heart and pelvic loops of small bowel in the sacrum which could represent postoperative scarring or potentially recurrent malignancy in the appropriate clinical setting. Correlate with prior clinical/operative history. 4. L5 spondylolysis with bilateral pars interarticularis defects, 6 mm anterolisthesis L5 on S1 and spondylosis. Labs Labs: Laboratory Results - last 24 hr 09/30/24 09/30/24 09/30/24 15:30 15:32 16:52 WBC 6.1 RBC 3.36 L Hgb 9.4 L Hct 30.3 L MCV 90.2 MCH 28.0 MCHC 31.0 L RDW 15.6 H Plt Count 142 L MPV 9.5 Immature Gran % (Auto) 0.5 Neut % (Auto) 73.5 H Lymph % (Auto) 19.5 [place] % (Auto) 5.8 Eos % (Auto) 0.2 Baso % (Auto) 0.5 Lymph # (Auto) 1.18 [place] # (Auto) 0.4 Eos # (Auto) 0.0 Baso # (Auto) 0.0 Abs Immat Gran (auto) 0.03 Absolute Neuts (auto) 4.5 Absolute Nucleated RBC 0.000 Nucleated RBC % 0.0 Sodium 142 Potassium 4.4 Chloride 108 H Carbon Dioxide 9 L Anion Gap 25 H BUN 77 H Creatinine 7.80 H Estim Creat Clear Calc 6 Estimated GFR 5 L Glucose 86 Lactic Acid 1.1 Calcium 9.8 Phosphorus Magnesium Total Bilirubin 0.6 AST 22 ALT 12 Alkaline Phosphatase 61 Total Protein 8.8 H Albumin 4.9 Lipase 523 H Urine Color Yellow Urine Appearance Cloudy H Urine pH 5.0 Ur Specific [place] 1.012 Urine Protein 1+ H Urine Glucose (UA) Negative Urine Ketones Trace H Ur Blood (Man) Trace Urine Nitrate Negative Urine Bilirubin Negative Urine Urobilinogen 0.2 Leukocyte Esterase Rfl 2+ H Urine RBC 0-2 Urine WBC 11-20 H Ur Squamous Epith Cells Occasional Urine Bacteria None seen Urine Casts 3-5 09/30/24 10/01/24 23:27 03:39 WBC 5.9 RBC 2.93 L Hgb 8.2 L Hct 26.9 L MCV 91.8 MCH 28.0 MCHC 30.5 L RDW 15.6 H Plt Count 119 L MPV 9.5 Immature Gran % (Auto) 1.4 H Neut % (Auto) 68.2 Lymph % (Auto) 21.7 [place] % (Auto) 7.7 Eos % (Auto) 0.5 Baso % (Auto) 0.5 Lymph # (Auto) 1.27 [place] # (Auto) 0.5 Eos # (Auto) 0.0 Baso # (Auto) 0.0 Abs Immat Gran (auto) 0.08 H Absolute Neuts (auto) 4.0 Absolute Nucleated RBC 0.000 Nucleated RBC % 0.0 Sodium 143 143 Potassium 3.9 3.6 Chloride 112 H 111 H Carbon Dioxide 12 L 13 L Anion Gap 19 H 19 H BUN 74 H 72 H Creatinine 6.95 H 6.54 H Estim Creat Clear Calc 6 7 Estimated GFR 6 L 6 L Glucose 79 74 Lactic Acid Calcium 9.1 8.7 Phosphorus 5.8 H 6.0 H Magnesium 2.0 2.0 Total Bilirubin 0.4 AST 18 ALT 8 Alkaline Phosphatase 53 Total Protein 6.7 Albumin 4.2 3.9 Lipase Urine Color Urine Appearance Urine pH Ur Specific [place] Urine Protein Urine Glucose (UA) Urine Ketones Ur Blood (Man) Urine Nitrate Urine Bilirubin Urine Urobilinogen Leukocyte Esterase Rfl Urine RBC Urine WBC Ur Squamous Epith Cells Urine Bacteria Urine Casts Quality VTE Prophylaxis VTE prophylaxis: mechanical ordered
[2024-10-01] MEDS: SERTRALINE HCL 50 MG TABLET 100 MG PO (08:46)
[2024-10-01] MEDS: SODIUM BICARBONATE TAB 650 MG TABLET 1300 MG PO ×2 (08:47→16:00)
[2024-10-01] MEDS: SERTRALINE HCL 25 MG TABLET PO (08:47)
[2024-10-01] MEDS: ROSUVASTATIN 20 MG TABLET PO (08:47)
[2024-10-01] MEDS: cefTRIAXone 1 GM in SODIUM CHLORIDE 0.9% IV 50 ML 100 ML IVPB (09:16)
--- NOTE | 2024-10-01 10:14 | P.CONNP_ITS ---
Assessment and Plan Assessment and plan (1) Acute kidney injury: Code(s): N17.9 - Acute kidney failure, unspecified Status: Acute Assessment and Plan: * as noted on admission - creatinine 7.8mg/dL * creatinine 1.03mg/dL in early May 2024 * suspect multifactorial etiology: * obstruction (in the context of a solitary kidney) * nephrolithiasis * prerenal factors (nausea/vomiting x 1 week prior to presentation) * infection (UTI?) * other(?) * s/p intervention by Urology regarding kidney stone and left hydronephrosis * check renal ultrasound, urine studies, and CPK * agree with IVFs for now * follow trend of repeat labs and UOP (2) Nephrolithiasis: Code(s): N20.0 - Calculus of kidney Status: Acute Assessment and Plan: * 6 mm stone in mid left ureter with single kidney status * s/p ureteral stenting on 09/30 * more definitive treatment of stone at a later date... * Urology following (3) Metabolic acidosis: Code(s): E87.20 - Acidosis, unspecified Status: Acute Assessment and Plan: * as noted on admission * likely secondary to FABIEN/ARF * attempting to compensate with oral sodium bicarbonate * can add bicarb to IVFs but this may potentiate hypoklaemia and hypocalcemia * follow CO2 levels (4) Anemia: Code(s): D64.9 - Anemia, unspecified Status: Acute Assessment and Plan: * possibly related to FABIEN along with acute illness * possibly dilutional from IVFs as well * check anemia studies * follow trend of H/H (5) Solitary kidney: Status: Chronic Assessment and Plan: * s/p right nephrectomy (due to metastatic cervical cancer with spread to the colon and right kidney) (6) Prediabetes: Code(s): R73.03 - Prediabetes Status: Chronic Assessment and Plan: * follow blood sugars I will continue to follow the patient with you while she remains hospitalized and make further recommendations as deemed necessary. Thank you for allowing me to participate in the care of this patient. L History of Present Illness Reason for Consult Consult date: 10/01/24 Reason for consult: acute renal failure Chief Complaint Chief complaint: vomitingx7 days, pt has ostomy History of Present Illness Narrative: The patient is a 63-year-old female with a past medical history as outlined below who presented to [facility] with complaints of nausea and vomiting. The patient states that the nausea vomiting has been going on for last 7 days if not longer with associated left-sided abdominal pain that she describes as a cramping sensation. She denies any blood with emesis or for that matter any issues with melena or hematochezia. She denies any other complaints with regard to shortness of breath, chest pain, palpitations, dizziness, lightheadedness, or syncope. She denies any change in her urine output other than the fact that the urine looks a bit darker than usual. The she has a known history of a colostomy and has not noted any change in output with regard to this either. Do the persistence of the nausea and vomiting and abdominal pain without any improvement, she presented to the emergency room for further assessment. Workup and evaluation emergency room demonstrated the patient be hemodynamically stable although she was slightly tachycardic. Routine blood work demonstrated evidence of acute kidney injury/acute renal failure with a creatinine of 7.8 mg/dL without any critical electrolyte abnormalities with a carbon dioxide level of 9 in association with relative anemia with a hemoglobin 9.4 and mild thrombocytopenia with a platelet count of 142 but normal white blood cell count. Given this significant change in her kidney function from previous testing, a CT scan of the abdomen pelvis was done which demonstrated a obstructing left ureteral stone with associated moderate left hydronephrosis and changes consistent with her right nephrectomy and partial colectomy with associated left lower quadrant colostomy. Urology was consulted from the emergency room and given the fact that the patient only has 1 kidney that is clearly obstructed by the evident renal stone, she was taken to the operative room for further intervention which included cystoscopy and left ureteral stent placement. She was subsequently admitted to hospital postprocedure for further evaluation and therapy. Since her admission to the hospital, her renal function has improved with the left ureteral stent placement and IV fluids but has still not returned back to baseline. Renal consultation was requested due to her acute kidney injury/acute renal failure. From review of her records, the patient's baseline creatinine usually runs around 1.0 mg/dL and was 1.03 mg/dL in early May of 2024 by labs done here at [facility]. As already mentioned, on admission, her creatinine was 7.8 mg/dL and following operative intervention and IV fluids, her creatinine has come down to 6 point 5 4 mg/dL by labs done this morning. Furthermore, her severe metabolic acidosis appears to be doing somewhat better as well as is up from 9 millimoles per L up to 13 millimoles per L just with IV fluid resuscitation. She has no critical electrolyte abnormalities and her volume status appears to be stable if not improving with IV fluids. Currently, at the time my evaluation, she appears to be in no acute distress but is complainting of fatigue/weakness. Review of Systems 2 Review of Systems: As per HPI. [facility] Past Medical History Medical History Hyperlipidemia History of colon cancer Hypertension Acute depression Surgical History Surgical History Colostomy status H/O section Family History Family History Father COPD (chronic obstructive pulmonary disease) CHF (congestive heart failure) Mother Prediabetes Sibling No problems noted. 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 Gender identity (if verbalized by the patient): Female Spiritual care concerns: No Meds Home Medications and Allergies Home Medications ?Medication ?Instructions ?Recorded ?Confirmed ?Type sertraline 100 mg tablet 100 mg PO DAILY 05/01/24 History sertraline 25 mg tablet 25 mg PO DAILY 05/01/2409/07 History trazodone 100 mg tablet 100 mg PO QHS PRN insomnia 0 05/01/24 09/30/24 History rosuvastatin 20 mg tablet 20 mg PO DAILY #90 tabs 05/0809/30/24 Rx cetirizine 10 mg tablet 10 mg PO DAILY PRN allergy 0 06/20/24 09/30/24 Rx symptoms #90 tabs Allergies Allergy/AdvReac Type Severity Reaction Status Date / Time clindamycin Allergy Unknown Swelling Verified 09/30/24 13:53 Vital Signs Vital Signs Temp Pulse Resp BP Pulse Ox O2 Del Method O2 Flow Rate 10/01/24 10:00 69 10/01/24 08:00 68 10/01/24 07:30 98.3 F 81 14 127/58 L 100 10/01/24 06:00 69 10/01/24 04:00 97.8 F 75 17 131/72 95 10/01/24 04:00 72 10/01/24 04:00 Room Air 10/01/24 02:00 67 10/01/24 00:00 87 10/01/24 00:00 Room Air 09/30/24 23:38 97.8 F 80 17 152/72 H 100 09/30/24 22:33 83 17 154/70 H 99 09/30/24 22:19 Room Air 09/30/24 22:00 80 09/30/24 21:30 98.5 F 80 18 147/70 H 99 Room Air 09/30/24 21:15 76 14 146/54 H 98 Room Air 09/30/24 21:00 86 18 145/58 H 99 Room Air 09/30/24 20:45 79 14 152/75 H 99 Room Air 09/30/24 20:34 Room Air 09/30/24 20:30 81 16 138/65 100 Simple Face Mask 09/30/24 20:18 98.6 F 92 18 120/44 L 100 Simple Face Mask 09/30/24 18:08 74 18 163/79 H 100 09/30/24 16:31 77 20 163/74 H 100 09/30/24 15:47 74 15 160/77 H 100 09/30/24 13:55 97.6 F 104 H 17 146/79 H 100 Room Air Exam 2 Narrative: GENERAL APPEARANCE: well developed well nourished female in no acute distress HEENT: normocephalic, atraumatic, normal conjunctiva and sclera, nares patient NECK: no lymphadenopathy, thyromegaly, or JVD MOUTH: normal lips, teeth, and gums CARDIOVASCULAR: RRR, normal S1 and S2, no rub RESPIRATORY: clear anteriorly ABDOMEN: soft, nontender, nondistended, positive bowel sounds present EXTREMITIES: no evidence of cyanosis, clubbing, or edema NEUROLOGICAL: alert and oriented x 3; CN II - XII intact bilaterally; no focal deficits noted Results Lab Results 10/02/24 03:36 10/02/24 03:36 Lab results: Most recent lab results Calcium 8.7 mg/dL (8.4-10.2) 10/01/24 03:39 Phosphorus 6.0 mg/dL (2.5-4.5) H 10/01/24 03:39 Magnesium 2.0 mg/dL (1.6-2.3) 10/01/24 03:39
--- NOTE | 2024-10-01 13:49 | P.CDI_ITS ---
CDI Query Clarification Request BMI: 24.4 Nutritional Diagnostic Statement: Please refer to the comprehensive nutrition assessment for further information. If you agree with diagnosis of Moderate protein calorie malnutrition related to inadequate energy intake as evidenced by pt report of poor po intake greater than 1 month, a significant weight loss of -15% x 3 months, and NFPE findings for moderate subcutaneous fat loss and moderate muscle wasting. Please specify severity if known: * Mild * Moderate * Severe * Other/Unknown <Diane Arana RN - Last Filed: 10/01/24 13:49> Clarified Diagnosis Clarified Diagnosis: moderate protein-calorie malnutrition <CHICHO Silva - Last Filed: 10/01/24 16:18>
--- NOTE | 2024-10-01 14:08 | P.PNUR_ITS ---
Progress Note: A&P Assessment and Plan (1) Ureterolithiasis: Code(s): N20.1 - Calculus of ureter Status: Acute (2) Acute kidney injury: Code(s): N17.9 - Acute kidney failure, unspecified Status: Acute (3) UTI (urinary tract infection): Qualifiers: Hematuria presence: with hematuria Urinary tract infection type: acute cystitis Qualified Code(s): N30.01 - Acute cystitis with hematuria Code(s): N39.0 - Urinary tract infection, site not specified Status: Acute (4) Solitary kidney: Status: Chronic Assessment and Plan: Hx RIGHT nephrectomy Plan Pleasant 63yoF with 6mm LEFT ureteral stone + acute renal failure in a solitary kidney s/p left ureteral stent placement 09/30/24 - Urine culture pending, continue empiric antibiotics - Cr downtrending, 6.54 from 7.8. Nephrology on board. - Plan for KUB in 1 week (I placed an ambulatory order in discharge instructions and a paper order on chart) - Plan to follow up with Dr. Arana following KUB as an outpatient for definitive stone treatment and/or stent management following KUB No plan for additional inpatient surgical intervention. Inpatient urology to follow peripherally. Please call with questions. Subjective Subjective Date/Time Seen: 10/01/24 14:08 Interval history: NAEO; afebrile Patient reports feeling tired this afternoon, no nausea, no pain Exam Narrative: alert, oriented, conversive non toxic, no focal deficits Objective Data Vital Signs Vital Signs: Vital Signs - 24 hr 09/30/24 15:47 09/30/24 16:31 09/30/24 18:08 Temperature Pulse Rate 74 77 74 Respiratory Rate 15 20 18 Blood Pressure 160/77 H 163/74 H 163/79 H Pulse Oximetry 100 100 100 Oxygen Delivery Oxygen Flow Rate 09/30/24 20:18 09/30/24 20:30 09/30/24 20:34 Temperature 98.6 F Pulse Rate 92 81 Respiratory Rate 18 16 Blood Pressure 120/44 L 138/65 Pulse Oximetry 100 100 Oxygen Delivery Simple Face Mask Simple Face Mask Room Air Oxygen Flow Rate 8 8 09/30/24 20:45 09/30/24 21:00 09/30/24 21:15 Temperature Pulse Rate 79 86 76 Respiratory Rate 14 18 14 Blood Pressure 152/75 H 145/58 H 146/54 H Pulse Oximetry 99 99 98 Oxygen Delivery Room Air Room Air Room Air Oxygen Flow Rate 09/30/24 21:30 09/30/24 22:00 09/30/24 22:19 Temperature 98.5 F Pulse Rate 80 80 Respiratory Rate 18 Blood Pressure 147/70 H Pulse Oximetry 99 Oxygen Delivery Room Air Room Air Oxygen Flow Rate 09/30/24 22:33 09/30/24 23:38 10/01/24 00:00 Temperature 97.8 F Pulse Rate 83 80 Respiratory Rate 17 17 Blood Pressure 154/70 H 152/72 H Pulse Oximetry 99 100 Oxygen Delivery Room Air Oxygen Flow Rate 10/01/24 00:00 10/01/24 02:00 10/01/24 04:00 Temperature Pulse Rate 87 67 Respiratory Rate Blood Pressure Pulse Oximetry Oxygen Delivery Room Air Oxygen Flow Rate 10/01/24 04:00 10/01/24 04:00 10/01/24 06:00 Temperature 97.8 F Pulse Rate 72 75 69 Respiratory Rate 17 Blood Pressure 131/72 Pulse Oximetry 95 Oxygen Delivery Oxygen Flow Rate 10/01/24 07:30 10/01/24 08:00 10/01/24 10:00 Temperature 98.3 F Pulse Rate 81 68 69 Respiratory Rate 14 Blood Pressure 127/58 L Pulse Oximetry 100 Oxygen Delivery Oxygen Flow Rate 10/01/24 11:34 10/01/24 12:00 10/01/24 14:00 Temperature 97.9 F Pulse Rate 70 68 84 Respiratory Rate 14 Blood Pressure 123/61 Pulse Oximetry 100 Oxygen Delivery Oxygen Flow Rate Intake/Output Intake/Output: Intake & Output 09/28/24 09/29/24 09/30/24 10/01/24 23:59 23:59 23:59 23:59 Intake Total 1200 1226.7 Output Total 1775 Balance 1200 -548.3 Meds/Results Medications: Active Medications Generic Name Dose Route Start Last Admin Trade Name Freq PRN Reason Stop Dose Admin Sodium Chloride 1,000 mls @ 100 mls/hr 09/30/24 19:15 10/01/24 08:46 Normal Saline Iv IV CONT 100 mls/hr .Q10H YUDELKA Administration Ceftriaxone Sodium 1 gm/ 50 mls @ 100 mls/hr 10/01/24 09:00 10/01/24 09:16 Sodium Chloride IVPB 100 mls/hr Q24H YUDELKA Administration Loratadine 10 mg 09/30/24 22:38 Loratadine 10 Mg Tablet PO DAILY PRN allergy symptoms Morphine Sulfate 2 mg 09/30/24 19:11 10/01/24 09:28 Morphine Sulfate (*Crx) 2 Mg/Ml Inj IV PUSH 2 mg Q2H PRN Administration Pain Rated 7-10 Ondansetron HCl 4 mg 09/30/24 19:11 Ondansetron Inj 4 Mg/2 Ml Vial IV PUSH Q4H PRN Nausea Rosuvastatin Calcium 20 mg 10/01/24 09:00 10/01/24 08:47 Rosuvastatin 20 Mg Tablet PO 20 mg DAILY YUDELKA Administration Sertraline HCl 100 mg 10/01/24 09:00 10/01/24 08:46 Sertraline Hcl 50 Mg Tablet PO 100 mg DAILY YUDELKA Administration Sertraline HCl 25 mg 10/01/24 09:00 10/01/24 08:47 Sertraline Hcl 25 Mg Tablet PO 25 mg DAILY YUDELKA Administration Sodium Bicarbonate 1,300 mg 10/01/24 09:00 10/01/24 08:47 Sodium Bicarbonate Tab 650 Mg Tablet PO 10/03/24 17:01 1,300 mg BID YUDELKA Administration Trazodone HCl 100 mg 09/30/24 22:33 Trazodone Hcl 50 Mg Tablet PO QHS PRN Insomnia Radiology Results: ITS Impressions Abdomen/Pelvis CT 09/30/24 18:05 IMPRESSION: 1. Obstructing 304 mm left ureteral stone with moderate left hydroureteronephrosis. 2. Status post right nephrectomy and partial colectomy with left lower quadrant and colostomy. 3. Soft tissue density replacing the presacral fat between the heart and pelvic loops of small bowel in the sacrum which could represent postoperative scarring or potentially recurrent malignancy in the appropriate clinical setting. Correlate with prior clinical/operative history. 4. L5 spondylolysis with bilateral pars interarticularis defects, 6 mm anterolisthesis L5 on S1 and spondylosis. Retrograde Pyelogram 10/01/24 09:02 IMPRESSION: 1. Left internal ureteral stent placement. Please refer to real-time procedural findings for details. Labs Labs: Laboratory Results - last 24 hr 09/30/24 09/30/24 09/30/24 15:30 15:32 16:52 WBC 6.1 RBC 3.36 L Hgb 9.4 L Hct 30.3 L MCV 90.2 MCH 28.0 MCHC 31.0 L RDW 15.6 H Plt Count 142 L MPV 9.5 Immature Gran % (Auto) 0.5 Neut % (Auto) 73.5 H Lymph % (Auto) 19.5 [place] % (Auto) 5.8 Eos % (Auto) 0.2 Baso % (Auto) 0.5 Lymph # (Auto) 1.18 [place] # (Auto) 0.4 Eos # (Auto) 0.0 Baso # (Auto) 0.0 Abs Immat Gran (auto) 0.03 Absolute Neuts (auto) 4.5 Absolute Nucleated RBC 0.000 Nucleated RBC % 0.0 Sodium 142 Potassium 4.4 Chloride 108 H Carbon Dioxide 9 L Anion Gap 25 H BUN 77 H Creatinine 7.80 H Estim Creat Clear Calc 6 Estimated GFR 5 L Glucose 86 Lactic Acid 1.1 Calcium 9.8 Phosphorus Magnesium Total Bilirubin 0.6 AST 22 ALT 12 Alkaline Phosphatase 61 Total Protein 8.8 H Albumin 4.9 Lipase 523 H Urine Color Yellow Urine Appearance Cloudy H Urine pH 5.0 Ur Specific [place] 1.012 Urine Protein 1+ H Urine Glucose (UA) Negative Urine Ketones Trace H Ur Blood (Man) Trace Urine Nitrate Negative Urine Bilirubin Negative Urine Urobilinogen 0.2 Leukocyte Esterase Rfl 2+ H Urine RBC 0-2 Urine WBC 11-20 H Ur Squamous Epith Cells Occasional Urine Bacteria None seen Urine Casts 3-5 09/30/24 10/01/24 23:27 03:39 WBC 5.9 RBC 2.93 L Hgb 8.2 L Hct 26.9 L MCV 91.8 MCH 28.0 MCHC 30.5 L RDW 15.6 H Plt Count 119 L MPV 9.5 Immature Gran % (Auto) 1.4 H Neut % (Auto) 68.2 Lymph % (Auto) 21.7 [place] % (Auto) 7.7 Eos % (Auto) 0.5 Baso % (Auto) 0.5 Lymph # (Auto) 1.27 [place] # (Auto) 0.5 Eos # (Auto) 0.0 Baso # (Auto) 0.0 Abs Immat Gran (auto) 0.08 H Absolute Neuts (auto) 4.0 Absolute Nucleated RBC 0.000 Nucleated RBC % 0.0 Sodium 143 143 Potassium 3.9 3.6 Chloride 112 H 111 H Carbon Dioxide 12 L 13 L Anion Gap 19 H 19 H BUN 74 H 72 H Creatinine 6.95 H 6.54 H Estim Creat Clear Calc 6 7 Estimated GFR 6 L 6 L Glucose 79 74 Lactic Acid Calcium 9.1 8.7 Phosphorus 5.8 H 6.0 H Magnesium 2.0 2.0 Total Bilirubin 0.4 AST 18 ALT 8 Alkaline Phosphatase 53 Total Protein 6.7 Albumin 4.2 3.9 Lipase Urine Color Urine Appearance Urine pH Ur Specific [place] Urine Protein Urine Glucose (UA) Urine Ketones Ur Blood (Man) Urine Nitrate Urine Bilirubin Urine Urobilinogen Leukocyte Esterase Rfl Urine RBC Urine WBC Ur Squamous Epith Cells Urine Bacteria Urine Casts
[2024-10-01 14:20] LABS: Urea Random Urine 212 MG/DL
[2024-10-01 14:28] LABS: Urine Eos QC 2nd Tech Confirmed
[2024-10-01 14:39] LABS: Total Protein Urine Random 564 mg/dL; Total Protein Urine Random 574 mg/dL; Ur Ttl Prot Creatinine Ratio 15.37 mg/mg (0-0.20)
[2024-10-01 19:20] LABS: Albumin Level 3.7 g/dL (3.5-5.1); Anion Gap 10 mmol/L (4-12); Blood Urea Nitrogen 59 mg/dL (7-17); Calcium 8.3 mg/dL (8.4-10.2); Carbon Dioxide 19 mmol/L (22-30); Chloride 113 mmol/L (98-107); Estimated CRCL calculation 8 ml/min; Estimated Glomerular Filt Rate 8; Glucose 98 mg/dL (65-110); Potassium 3.6 mmol/L (3.4-5.0); Sodium 142 mmol/L (137-145)
[2024-10-02] VITALS (12 sets, daily range): BP systolic 120–154; BP diastolic 58–66; PULSE 65–90; RESP 16–20; TEMP 36.4–36.9; O2SAT 98–100
[2024-10-02 04:43] LABS: Hematocrit 23.6 % (37.0-47.0); Hemoglobin 7.2 g/dL (12.0-15.0); Immature Granulocyte Percent A 1.4 % (0-0.5); Immature Platelet Fraction Pct 1.2 % (0.9-11.2); Lymphocytes Absolute Auto 1.05 K/mm3 (0.9-3.2); Mean Corpuscular HGB Conc 30.5 g/dl (32-36); Mean Corpuscular Hemoglobin 28.1 pg (26-34); Mean Corpuscular Volume 92.2 fl (80-100); Nucleated Red Blood Cells Absolute Auto 0.000 K/mm3 (0.0-0.012); Nucleated Red Blood Cells Perc 0.0 % (0.0-0.2); Platelet Count Result 99 k/mm3 (150-375); Red Blood Count 2.56 M/mm3 (4.2-5.4); White Blood Count 4.3 K/mm3 (4.5-10.0)
[2024-10-02 05:02] LABS: Iron 41 ug/dL (37-170)
[2024-10-02 05:08] LABS: Albumin Level 3.4 g/dL (3.5-5.1); Alkaline Phosphatase 46 U/L (38-126); Anion Gap 12 mmol/L (4-12); Aspartate Amino Transferase 17 U/L (14-36); Bilirubin,Total 0.3 mg/dL (0.2-1.3); Blood Urea Nitrogen 54 mg/dL (7-17); Calcium 8.2 mg/dL (8.4-10.2); Carbon Dioxide 18 mmol/L (22-30); Chloride 115 mmol/L (98-107); Creatine Kinase 91 U/L (30-135); Estimated CRCL calculation 10 ml/min; Estimated Glomerular Filt Rate 10; Glucose 81 mg/dL (65-110); Magnesium 1.7 mg/dL (1.6-2.3); Potassium 3.3 mmol/L (3.4-5.0); Sodium 145 mmol/L (137-145); Total Protein 6.1 g/dL (6.3-8.2)
[2024-10-02 05:11] LABS: Percent Iron Saturation 25 % (20-50)
[2024-10-02 05:44] LABS: Ferritin 964.00 ng/mL (11.1-264)
[2024-10-02 06:19] LABS: Vitamin B12 819.0 pg/mL (239-931)
--- NOTE | 2024-10-02 06:20 | PC.NURSE ---
called urology health consultant regarding HGB drop from 9.[address] Morejon physician health consultant returned call. informed or continued bloody urine without clots, drop in Hgb to 7.2 with stable vital signs. Will continue to monitor.
[2024-10-02] MEDS: SODIUM CHLORIDE 0.9% IV 1,000 ML 100 ML IV CONT ×2 (06:30→20:12)
--- NOTE | 2024-10-02 08:23 | P.PNIM_ITS ---
Progress Note: A&P Assessment and Plan (1) FABIEN (acute kidney injury): Code(s): N17.9 - Acute kidney failure, unspecified Status: Deleted Assessment and Plan: * admit Creatinine 7.8 with usual baseline around 1 per Urology record * N/V for 7 days prior to ER presentation * history of R nephrectomy * Non-contrast CT scan showed obstructing left ureteral stone with hydronephrosis * management of ureteral stone as below * nephrology consulted - appreciate further recommendations * IV fluid 100 mL/hr post operatively * avoid NSAIDs * Cr improving today - 4.58 (2) Ureterolithiasis: Code(s): N20.1 - Calculus of ureter Status: Acute Assessment and Plan: * 6 mm stone in mid left ureter with single kidney status * s/p urgent L ureteral stent placement by Dr. Adams 10/01/24 * plan for definitive for stone management after medical stabilization * Plan for KUB in 1 week * No plan for additional inpatient surgical intervention * Follow up with Dr. Arana following KUB as an outpatient for definitive stone treatment (3) UTI (urinary tract infection): Qualifiers: Hematuria presence: with hematuria Urinary tract infection type: acute cystitis Qualified Code(s): N30.01 - Acute cystitis with hematuria Code(s): N39.0 - Urinary tract infection, site not specified Status: Acute Assessment and Plan: * UA with 2+ LE, 11-20 WBC * patient complaining of dysuria * received Ancef perioperatively. Start IV Rocephin, await urine culture. (4) History of colon cancer: Code(s): Z85.038 - Personal history of other malignant neoplasm of large intestine Status: Chronic Assessment and Plan: * S/P resection and colostomy due to previously treated colon cancer (5) Single kidney: Code(s): Z90.5 - Acquired absence of kidney Status: Chronic Assessment and Plan: * S/P right nephrectomy for mass/colon cancer (6) Anemia: Code(s): D64.9 - Anemia, unspecified Status: Acute Assessment and Plan: * 9.4 on admit. No baseline to review. * likely due to hematuria and hemodilution * monitor CBC * transfuse Hgb <7 * 10/02: Hgb 7.2 Plan Abnormal imaging: CT showed Soft tissue density replacing the presacral fat between the heart and pelvic loops of small bowel in the sacrum which could represent postoperative scarring or potentially recurrent malignancy in the a ppropriate clinical setting. Correlate with prior clinical/operative history. May benefit from repeat imaging as outpatient. DVT prophylaxis: SCDs Disposition: home in 2-3 days pending improvement of renal function Subjective Date/time seen: 10/02/24 08:23 Interval history: 63-year-old female patient who was admitted to the hospital due to acute renal failure. Patient presented to the emergency department complaining of nausea and vomiting for 7 days as well as left-sided abdominal pain. On chemistry panel patient found to have creatinine of 7.8. 10/02/2024 Patient sitting comfortably in bed at time of exam. Denies any chest pain, n/v, abdominal pain, or SOB at this time. Cr continues to improve, 7.8 -> 4.58. Nephro to continue following, plan on monitoring kidney function. Hg continues to decrease - 7.2 today - Continue to monitor. Review of Systems Review of Systems: All systems reviewed & are unremarkable except as noted in HPI and below Exam Narrative: General: NAD Eyes: EOMI ENT: neck supple Cardiovascular: Regular rate and rhythm Respiratory: Clear to auscultation, respirations even and unlabored on RA Gastrointestinal: Soft, non tender Genitourinary: no suprapubic tenderness Musculoskeletal: No edema Skin: warm, dry Neuro: Alert. Psych: Mood appropriate Objective Data Vital Signs Vital Signs: Vital Signs - 24 hr 10/01/24 10:00 10/01/24 11:34 10/01/24 12:00 Temperature 97.9 F Pulse Rate 69 70 68 Respiratory Rate 14 Blood Pressure 123/61 Pulse Oximetry 100 Oxygen Delivery 10/01/24 14:00 10/01/24 15:30 10/01/24 16:00 Temperature 98.2 F Pulse Rate 84 70 77 Respiratory Rate 16 Blood Pressure 130/57 L Pulse Oximetry 99 Oxygen Delivery 10/01/24 19:46 10/01/24 19:47 10/01/24 20:00 Temperature 98.1 F Pulse Rate 68 68 67 Respiratory Rate 16 16 Blood Pressure 142/60 H Pulse Oximetry 99 100 Oxygen Delivery Room Air 10/02/24 00:00 10/02/24 00:00 10/02/24 04:00 Temperature 98.1 F Pulse Rate 68 68 68 Respiratory Rate 16 Blood Pressure 120/59 L Pulse Oximetry 98 Oxygen Delivery 10/02/24 07:39 Temperature 97.6 F Pulse Rate 74 Respiratory Rate 18 Blood Pressure 139/58 L Pulse Oximetry 99 Oxygen Delivery Intake/Output Intake/Output: Intake & Output 09/29/24 09/30/24 10/01/24 10/02/24 23:59 23:59 23:59 23:59 Intake Total 1200 3705.0 1550 Output Total 2450 2100 Balance 1200 1255.0 -550 Meds/Results Medications: Active Medications Generic Name Dose Route Start Last Admin Trade Name Freq PRN Reason Stop Dose Admin Sodium Chloride 1,000 mls @ 100 mls/hr 09/30/24 19:15 10/02/24 06:30 Normal Saline Iv IV CONT 100 mls/hr .Q10H YUDELKA Administration Ceftriaxone Sodium 1 gm/ 50 mls @ 100 mls/hr 10/01/24 09:00 10/01/24 10:00 Sodium Chloride IVPB Infused Q24H YUDELKA Infusion Loratadine 10 mg 09/30/24 22:38 Loratadine 10 Mg Tablet PO DAILY PRN allergy symptoms Morphine Sulfate 2 mg 09/30/24 19:11 10/01/24 21:35 Morphine Sulfate (*Crx) 2 Mg/Ml Inj IV PUSH 2 mg Q2H PRN Administration Pain Rated 7-10 Ondansetron HCl 4 mg 09/30/24 19:11 Ondansetron Inj 4 Mg/2 Ml Vial IV PUSH Q4H PRN Nausea Rosuvastatin Calcium 20 mg 10/01/24 09:00 10/01/24 08:47 Rosuvastatin 20 Mg Tablet PO 20 mg DAILY YUDELKA Administration Sertraline HCl 100 mg 10/01/24 09:00 10/01/24 08:46 Sertraline Hcl 50 Mg Tablet PO 100 mg DAILY YUDELKA Administration Sertraline HCl 25 mg 10/01/24 09:00 10/01/24 08:47 Sertraline Hcl 25 Mg Tablet PO 25 mg DAILY YUEDLKA Administration Trazodone HCl 100 mg 09/30/24 22:33 10/01/24 21:36 Trazodone Hcl 50 Mg Tablet PO 100 mg QHS PRN Administration Insomnia Radiology Results: ITS Impressions Abdomen/Pelvis CT 09/30/24 18:05 IMPRESSION: 1. Obstructing 304 mm left ureteral stone with moderate left hydroureteronephrosis. 2. Status post right nephrectomy and partial colectomy with left lower quadrant and colostomy. 3. Soft tissue density replacing the presacral fat between the heart and pelvic loops of small bowel in the sacrum which could represent postoperative scarring or potentially recurrent malignancy in the appropriate clinical setting. Correlate with prior clinical/operative history. 4. L5 spondylolysis with bilateral pars interarticularis defects, 6 mm anterolisthesis L5 on S1 and spondylosis. Retrograde Pyelogram 10/01/24 09:02 IMPRESSION: 1. Left internal ureteral stent placement. Please refer to real-time procedural findings for details. Labs Labs: Laboratory Results - last 24 hr 10/01/24 10/01/24 10/01/24 13:47 13:47 13:47 WBC RBC Hgb Hct MCV MCH MCHC RDW Plt Count MPV Immature Gran % (Auto) Neut % (Auto) Lymph % (Auto) [place] % (Auto) Eos % (Auto) Baso % (Auto) Lymph # (Auto) [place] # (Auto) Eos # (Auto) Baso # (Auto) Abs Immat Gran (auto) Absolute Neuts (auto) Absolute Nucleated RBC Nucleated RBC % % Immature Plt Fraction Sodium Potassium Chloride Carbon Dioxide Anion Gap BUN Creatinine Estim Creat Clear Calc Estimated GFR Glucose Calcium Phosphorus Magnesium Iron TIBC % Saturation Ferritin Total Bilirubin AST Alkaline Phosphatase Total Creatine Kinase Total Protein Albumin Vitamin B12 Folate Urine Eosinophils None seen U Random Total Protein 564 574 Ur Random Sodium 87 Ur Random Urea 212 Urine Creatinine 36.7 36.4 Protein/Creat Ratio 2 15.37 H Blood Type Antibody Screen 10/01/24 10/02/24 10/02/24 18:47 03:36 06:28 WBC 4.3 L RBC 2.56 L Hgb 7.2 L Hct 23.6 L MCV 92.2 MCH 28.1 MCHC 30.5 L RDW 15.8 H Plt Count 99 L MPV 9.8 Immature Gran % (Auto) 1.4 H Neut % (Auto) 62.9 Lymph % (Auto) 24.2 [place] % (Auto) 7.8 Eos % (Auto) 3.0 Baso % (Auto) 0.7 Lymph # (Auto) 1.05 [place] # (Auto) 0.3 Eos # (Auto) 0.1 Baso # (Auto) 0.0 Abs Immat Gran (auto) 0.06 H Absolute Neuts (auto) 2.7 Absolute Nucleated RBC 0.000 Nucleated RBC % 0.0 % Immature Plt Fraction 1.2 Sodium 142 145 Potassium 3.6 3.3 L Chloride 113 H 115 H Carbon Dioxide 19 L 18 L Anion Gap 10 12 BUN 59 H D 54 H Creatinine 5.29 H 4.58 H Estim Creat Clear Calc 8 10 Estimated GFR 8 L 10 L Glucose 98 81 Calcium 8.3 L 8.2 L Phosphorus 5.0 H 4.8 H Magnesium 1.7 Iron 41 TIBC 163 L % Saturation 25 Ferritin 964.00 H Total Bilirubin 0.3 AST 17 Alkaline Phosphatase 46 Total Creatine Kinase 91 Total Protein 6.1 L Albumin 3.7 3.4 L Vitamin B12 819.0 Folate 3.3 Urine Eosinophils U Random Total Protein Ur Random Sodium Ur Random Urea Urine Creatinine Protein/Creat Ratio 2 Blood Type O Positive Antibody Screen Negative Quality VTE Prophylaxis VTE prophylaxis: mechanical ordered
[2024-10-02 08:38] LABS: Alanine Aminotransferase < 6 U/L (6-35)
[2024-10-02] MEDS: POTASSIUM CHLORIDE 20 MEQ ER TABLET PO (08:41)
[2024-10-02] MEDS: SERTRALINE HCL 50 MG TABLET 100 MG PO (08:41)
[2024-10-02] MEDS: ROSUVASTATIN 20 MG TABLET PO (08:41)
[2024-10-02] MEDS: SERTRALINE HCL 25 MG TABLET PO (08:41)
[2024-10-02] MEDS: cefTRIAXone 1 GM in SODIUM CHLORIDE 0.9% IV 50 ML 100 ML IVPB (11:11)
--- NOTE | 2024-10-02 12:56 | P.PNNP_ITS ---
Progress Note: A&P Assessment and Plan (1) Acute kidney injury: Code(s): N17.9 - Acute kidney failure, unspecified Status: Acute Assessment and Plan: * slow improvement noted * as noted on admission - creatinine 7.8mg/dL * creatinine 1.03mg/dL in early May 2024 * suspect multifactorial etiology: * obstruction (in the context of a solitary kidney) * nephrolithiasis * prerenal factors (nausea/vomiting x 1 week prior to presentation) * infection (UTI?) * other(?) * s/p intervention by Urology regarding kidney stone and left hydronephrosis * evaluation to date noted: * renal ultrasound with still with left hydronephrosis * urine electrolytes non-prerenal * urine eosinophils negative * CPK normal * ++ proteinuria * continue with IVFs for now * follow trend of repeat labs and UOP (2) Nephrolithiasis: Code(s): N20.0 - Calculus of kidney Status: Acute Assessment and Plan: * 6 mm stone in mid left ureter with single kidney status * s/p ureteral stenting on 09/30 * more definitive treatment of stone at a later date... * Urology following (3) Metabolic acidosis: Code(s): E87.20 - Acidosis, unspecified Status: Acute Assessment and Plan: * as noted on admission * likely secondary to FABIEN/ARF * attempting to compensate with oral sodium bicarbonate * can add bicarb to IVFs but this may potentiate hypokalemia and hypocalcemia * follow CO2 levels (4) Anemia: Code(s): D64.9 - Anemia, unspecified Status: Acute Assessment and Plan: * possibly related to FABIEN along with acute illness * possibly dilutional from IVFs as well * anemia studies with adequate iron stores * intermittent KOBE dosing while hospitalized * follow trend of H/H (5) Solitary kidney: Status: Chronic Assessment and Plan: * s/p right nephrectomy (due to metastatic cervical cancer with spread to the colon and right kidney) (6) Prediabetes: Code(s): R73.03 - Prediabetes Status: Chronic Assessment and Plan: * follow blood sugars Will continue to follow. L Subjective Date/time seen: 10/02/24 12:56 Interval history: Follow-up for acute kidney injury/acute renal failure. No apparent distress noted at the time of my visit; renal function/creatinine as well as acidosis continue to improve in association with good urine output; no other issues/events overnight or earlier this morning. Exam 2 Narrative: General: elderly but WD/WN female in NAD Heart: normal S1 and S2; no rub Lungs: clear to auscultation Abdomen: soft, nontender, nondistended, positive bowel sounds Extremities: no cyanosis or clubbing; no edema Skin: warm and dry Objective Data Vital Signs Vital Signs: Vital Signs Temp Pulse Resp BP Pulse Ox O2 Del Method 10/02/24 11:00 98.1 F 69 20 135/66 99 10/02/24 09:21 72 10/02/24 08:15 Room Air 10/02/24 08:00 74 10/02/24 07:39 97.6 F 74 18 139/58 L 99 10/02/24 04:00 68 10/02/24 00:00 68 10/02/24 00:00 98.1 F 68 16 120/59 L 98 10/01/24 20:00 98.1 F 67 16 142/60 H 100 10/01/24 19:47 68 10/01/24 19:46 68 16 99 Room Air Intake/Output Intake/Output: Intake & Output 09/29/24 09/30/24 10/01/24 10/02/24 23:59 23:59 23:59 23:59 Intake Total 1200 3705.0 3980 Output Total 2450 2950 Balance 1200 1255.0 1030 Meds/Results Medications: Active Medications Generic Name Dose Route Start Last Admin Trade Name Freq PRN Reason Stop Dose Admin Sodium Chloride 1,000 mls @ 100 mls/hr 09/30/24 19:15 10/02/24 06:30 Normal Saline Iv IV CONT 100 mls/hr .Q10H YUDELKA Administration Ceftriaxone Sodium 1 gm/ 50 mls @ 100 mls/hr 10/01/24 09:00 10/02/24 11:11 Sodium Chloride IVPB 100 mls/hr Q24H YUDELKA Administration Loratadine 10 mg 09/30/24 22:38 Loratadine 10 Mg Tablet PO DAILY PRN allergy symptoms Morphine Sulfate 2 mg 09/30/24 19:11 10/01/24 21:35 Morphine Sulfate (*Crx) 2 Mg/Ml Inj IV PUSH 2 mg Q2H PRN Administration Pain Rated 7-10 Ondansetron HCl 4 mg 09/30/24 19:11 Ondansetron Inj 4 Mg/2 Ml Vial IV PUSH Q4H PRN Nausea Rosuvastatin Calcium 20 mg 10/01/24 09:00 10/02/24 08:41 Rosuvastatin 20 Mg Tablet PO 20 mg DAILY YUDELKA Administration Sertraline HCl 100 mg 10/01/24 09:00 10/02/24 08:41 Sertraline Hcl 50 Mg Tablet PO 100 mg DAILY YUDELKA Administration Sertraline HCl 25 mg 10/01/24 09:00 10/02/24 08:41 Sertraline Hcl 25 Mg Tablet PO 25 mg DAILY YUDELKA Administration Sodium Bicarbonate 650 mg 10/02/24 17:00 Sodium Bicarbonate Tab 650 Mg Tablet PO BID YUDELKA Trazodone HCl 100 mg 09/30/24 22:33 10/01/24 21:36 Trazodone Hcl 50 Mg Tablet PO 100 mg QHS PRN Administration Insomnia Radiology Results: ITS Impressions Abdomen/Pelvis CT 09/30/24 18:05 IMPRESSION: 1. Obstructing 304 mm left ureteral stone with moderate left hydroureteronephrosis. 2. Status post right nephrectomy and partial colectomy with left lower quadrant and colostomy. 3. Soft tissue density replacing the presacral fat between the heart and pelvic loops of small bowel in the sacrum which could represent postoperative scarring or potentially recurrent malignancy in the appropriate clinical setting. Correlate with prior clinical/operative history. 4. L5 spondylolysis with bilateral pars interarticularis defects, 6 mm anterolisthesis L5 on S1 and spondylosis. Retrograde Pyelogram 10/01/24 09:02 IMPRESSION: 1. Left internal ureteral stent placement. Please refer to real-time procedural findings for details. Renal Ultrasound 10/02/24 09:25 Impression: 1: Moderate left hydronephrosis. Labs Labs: Laboratory Tests 10/02/24 03:36 10/02/24 03:36 Calcium 8.2 L Phosphorus 4.8 H Magnesium 1.7 Iron 41 TIBC 163 L % Saturation 25 Ferritin 964.00 H Total Bilirubin 0.3 AST 17 ALT < 6 L Alkaline Phosphatase 46 Total Creatine Kinase 91 Total Protein 6.1 L Albumin 3.4 L Vitamin B12 819.0 Folate 3.3
--- NOTE | 2024-10-02 12:57 | PCPTNOTE ---
Spoke with nursing. Pt essential independent and has been ambulating with no assist. Hospitalist contacted and agreed to removing therapy orders at this time. Will make nurse aware.
--- NOTE | 2024-10-02 16:34 | PC.NURSE ---
On 10/02/24, the student, Augusta Cyr, provided care and completed [facility] documentation on this patient. I have reviewed the student's documentation and agree with the findings.
[2024-10-02] MEDS: SODIUM BICARBONATE TAB 650 MG TABLET PO (17:16)
[2024-10-02 17:53] LABS: Albumin Level 3.6 g/dL (3.5-5.1); Anion Gap 11 mmol/L (4-12); Blood Urea Nitrogen 44 mg/dL (7-17); Calcium 8.0 mg/dL (8.4-10.2); Carbon Dioxide 17 mmol/L (22-30); Chloride 112 mmol/L (98-107); Estimated CRCL calculation 13 ml/min; Estimated Glomerular Filt Rate 13; Glucose 140 mg/dL (65-110); Potassium 3.5 mmol/L (3.4-5.0); Sodium 140 mmol/L (137-145)
[2024-10-02] MEDS: EPOETIN ALFA-EPBX 20,000 UNITS/ML VIAL 20000 UNITS SUB-Q (18:10)
[2024-10-02] MEDS: MORPHINE SULFATE (*CRX) 2 MG/ML INJ IV PUSH (23:09)
[2024-10-03 04:17] LABS: Hematocrit 22.8 % (37.0-47.0); Hemoglobin 7.0 g/dL (12.0-15.0); Immature Granulocyte Percent A 1.0 % (0-0.5); Immature Platelet Fraction Pct 0.9 % (0.9-11.2); Lymphocytes Absolute Auto 0.99 K/mm3 (0.9-3.2); Mean Corpuscular HGB Conc 30.7 g/dl (32-36); Mean Corpuscular Hemoglobin 28.1 pg (26-34); Mean Corpuscular Volume 91.6 fl (80-100); Nucleated Red Blood Cells Absolute Auto 0.000 K/mm3 (0.0-0.012); Nucleated Red Blood Cells Perc 0.0 % (0.0-0.2); Platelet Count Result 89 k/mm3 (150-375); Red Blood Count 2.49 M/mm3 (4.2-5.4); White Blood Count 3.9 K/mm3 (4.5-10.0)
[2024-10-03 04:31] LABS: Albumin Level 3.2 g/dL (3.5-5.1); Alkaline Phosphatase 44 U/L (38-126); Anion Gap 8 mmol/L (4-12); Aspartate Amino Transferase 19 U/L (14-36); Bilirubin,Total 0.4 mg/dL (0.2-1.3); Blood Urea Nitrogen 37 mg/dL (7-17); Calcium 7.5 mg/dL (8.4-10.2); Carbon Dioxide 21 mmol/L (22-30); Chloride 115 mmol/L (98-107); Estimated CRCL calculation 14 ml/min; Estimated Glomerular Filt Rate 14; Glucose 85 mg/dL (65-110); Magnesium 1.4 mg/dL (1.6-2.3); Potassium 3.2 mmol/L (3.4-5.0); Sodium 144 mmol/L (137-145); Total Protein 5.8 g/dL (6.3-8.2)
[2024-10-03 04:32] LABS: Alanine Aminotransferase < 6 U/L (6-35)
[2024-10-03] MEDS: SODIUM CHLORIDE 0.9% IV 1,000 ML 100 ML IV CONT ×2 (05:26→17:07)
[2024-10-03 07:50] VITALS: BP 132/61; PULSE 70; RESP 18; TEMP 36.9; O2SAT 98
--- NOTE | 2024-10-03 08:20 | P.PNIM_ITS ---
Progress Note: A&P Assessment and Plan (1) FABIEN (acute kidney injury): Code(s): N17.9 - Acute kidney failure, unspecified Status: Deleted Assessment and Plan: * admit Creatinine 7.8 with usual baseline around 1 per Urology record * N/V for 7 days prior to ER presentation * history of R nephrectomy * Non-contrast CT scan showed obstructing left ureteral stone with hydronephrosis * management of ureteral stone as below * nephrology consulted - appreciate further recommendations * IV fluid 100 mL/hr post operatively * avoid NSAIDs * 10/03: Cr -> 3.28 (2) Ureterolithiasis: Code(s): N20.1 - Calculus of ureter Status: Acute Assessment and Plan: * 6 mm stone in mid left ureter with single kidney status * s/p urgent L ureteral stent placement by Dr. Adams 10/01/24 * plan for definitive for stone management after medical stabilization * Plan for KUB in 1 week * No plan for additional inpatient surgical intervention * Follow up with Dr. Arana following KUB as an outpatient for definitive stone treatment (3) UTI (urinary tract infection): Qualifiers: Hematuria presence: with hematuria Urinary tract infection type: acute cystitis Qualified Code(s): N30.01 - Acute cystitis with hematuria Code(s): N39.0 - Urinary tract infection, site not specified Status: Acute Assessment and Plan: * UA with 2+ LE, 11-20 WBC * patient complaining of dysuria * received Ancef perioperatively. Start IV Rocephin, await urine culture. * Urine culture shows growth of Gram-negative bacilli, waiting on susceptibility (4) History of colon cancer: Code(s): Z85.038 - Personal history of other malignant neoplasm of large intestine Status: Chronic Assessment and Plan: * S/P resection and colostomy due to previously treated colon cancer (5) Single kidney: Code(s): Z90.5 - Acquired absence of kidney Status: Chronic Assessment and Plan: * S/P right nephrectomy for mass/colon cancer (6) Anemia: Code(s): D64.9 - Anemia, unspecified Status: Acute Assessment and Plan: * 9.4 on admit. No baseline to review. * likely due to hematuria and hemodilution * monitor CBC * transfuse Hgb <7 * 10/03: Hgb 7.0 * Nephrology started Retacrit, 1st dose this morning Plan Abnormal imaging: CT showed Soft tissue density replacing the presacral fat between the heart and pelvic loops of small bowel in the sacrum which could represent postoperative scarring or potentially recurrent malignancy in the appropriate clinical setting. Correlate with prior clinical/operative history. May benefit from repeat imaging as outpatient. DVT prophylaxis: SCDs Disposition: home in 2-3 days pending improvement of renal function Subjective Date/time seen: 10/03/24 08:20 Interval history: 63-year-old female patient who was admitted to the hospital due to acute renal failure. Patient presented to the emergency department complaining of nausea and vomiting for 7 days as well as left-sided abdominal pain. On chemistry panel patient found to have creatinine of 7.8. 10/03/2024 Patient sitting comfortably in bed at time of exam. Reports feeling. Today, denies any chest pain, shortness a breath or nausea. Still some lower abdominal discomfort but reports significant improvement since yesterday. Hemoglobin down to 7.0, will continue to monitor, received 1st dose of Retacrit this morning at 9. Urine culture specificity still pending, showing growth of Gram-negative bacilli. Continue antibiotics for suspected UTI. Review of Systems Review of Systems: All systems reviewed & are unremarkable except as noted in HPI and below Exam Narrative: General: NAD Eyes: EOMI ENT: neck supple Cardiovascular: Regular rate and rhythm Respiratory: Clear to auscultation, respirations even and unlabored on RA Gastrointestinal: Soft, non tender Genitourinary: no suprapubic tenderness Musculoskeletal: No edema Skin: warm, dry Neuro: Alert. Psych: Mood appropriate Objective Data Vital Signs Vital Signs: Vital Signs - 24 hr 10/02/24 09:21 10/02/24 11:00 10/02/24 12:00 Temperature 98.1 F Pulse Rate 72 69 83 Respiratory Rate 20 Blood Pressure 135/66 Pulse Oximetry 99 Oxygen Delivery 10/02/24 15:42 10/02/24 16:00 10/02/24 19:57 Temperature 97.8 F 98.1 F Pulse Rate 75 65 90 Respiratory Rate 16 16 Blood Pressure 143/62 H 154/63 H Pulse Oximetry 100 99 Oxygen Delivery 10/02/24 20:00 10/02/24 20:00 10/02/24 23:41 Temperature 98.4 F Pulse Rate 68 68 74 Respiratory Rate 16 16 Blood Pressure 131/61 Pulse Oximetry 99 99 Oxygen Delivery Room Air 10/03/24 07:50 Temperature 98.4 F Pulse Rate 70 Respiratory Rate 18 Blood Pressure 132/61 Pulse Oximetry 98 Oxygen Delivery Intake/Output Intake/Output: Intake & Output 09/30/24 10/01/24 10/02/24 10/03/24 23:59 23:59 23:59 23:59 Intake Total 1200 3705.0 5670 1443.3 Output Total 2450 2950 1050 Balance 1200 1255.0 2720 393.3 Meds/Results Medications: Active Medications Generic Name Dose Route Start Last Admin Trade Name Freq PRN Reason Stop Dose Admin Epoetin Gustavo-epbx 10,000 units 10/03/24 09:00 Epoetin Gustavo-Epbx 10,000 Units/Ml Vial SUB-Q [id number] YUDELKA Sodium Chloride 1,000 mls @ 100 mls/hr 09/30/24 19:15 10/03/24 05:26 Normal Saline Iv IV CONT 100 mls/hr .Q10H YUDELKA Administration Ceftriaxone Sodium 1 gm/ 50 mls @ 100 mls/hr 10/01/24 09:00 10/02/24 11:11 Sodium Chloride IVPB 100 mls/hr Q24H YUDELKA Administration Loratadine 10 mg 09/30/24 22:38 Loratadine 10 Mg Tablet PO DAILY PRN allergy symptoms Morphine Sulfate 2 mg 09/30/24 19:11 10/02/24 23:09 Morphine Sulfate (*Crx) 2 Mg/Ml Inj IV PUSH 2 mg Q2H PRN Administration Pain Rated 7-10 Ondansetron HCl 4 mg 09/30/24 19:11 Ondansetron Inj 4 Mg/2 Ml Vial IV PUSH Q4H PRN Nausea Rosuvastatin Calcium 20 mg 10/01/24 09:00 10/02/24 08:41 Rosuvastatin 20 Mg Tablet PO 20 mg DAILY YUDELKA Administration Sertraline HCl 100 mg 10/01/24 09:00 10/02/24 08:41 Sertraline Hcl 50 Mg Tablet PO 100 mg DAILY YUDELKA Administration Sertraline HCl 25 mg 10/01/24 09:00 10/02/24 08:41 Sertraline Hcl 25 Mg Tablet PO 25 mg DAILY YUDELKA Administration Sodium Bicarbonate 650 mg 10/02/24 17:00 10/02/24 17:16 Sodium Bicarbonate Tab 650 Mg Tablet PO 650 mg BID YUDELKA Administration Trazodone HCl 100 mg 09/30/24 22:33 10/02/24 20:11 Trazodone Hcl 50 Mg Tablet PO 100 mg QHS PRN Administration Insomnia Radiology Results: ITS Impressions Abdomen/Pelvis CT 09/30/24 18:05 IMPRESSION: 1. Obstructing 304 mm left ureteral stone with moderate left hydroureteronephrosis. 2. Status post right nephrectomy and partial colectomy with left lower quadrant and colostomy. 3. Soft tissue density replacing the presacral fat between the heart and pelvic loops of small bowel in the sacrum which could represent postoperative scarring or potentially recurrent malignancy in the appropriate clinical setting. Correlate with prior clinical/operative history. 4. L5 spondylolysis with bilateral pars interarticularis defects, 6 mm anterolisthesis L5 on S1 and spondylosis. Retrograde Pyelogram 10/01/24 09:02 IMPRESSION: 1. Left internal ureteral stent placement. Please refer to real-time procedural findings for details. Renal Ultrasound 10/02/24 09:25 Impression: 1: Moderate left hydronephrosis. Labs Labs: Laboratory Results - last 24 hr 10/02/24 10/02/24 10/03/24 03:36 17:30 03:15 WBC 3.9 L RBC 2.49 L Hgb 7.0 L Hct 22.8 L MCV 91.6 MCH 28.1 MCHC 30.7 L RDW 15.8 H Plt Count 89 L MPV 10.1 Immature Gran % (Auto) 1.0 H Neut % (Auto) 60.8 Lymph % (Auto) 25.2 [place] % (Auto) 8.4 Eos % (Auto) 3.8 Baso % (Auto) 0.8 Lymph # (Auto) 0.99 [place] # (Auto) 0.3 Eos # (Auto) 0.2 Baso # (Auto) 0.0 Abs Immat Gran (auto) 0.04 H Absolute Neuts (auto) 2.4 Absolute Nucleated RBC 0.000 Nucleated RBC % 0.0 % Immature Plt Fraction 0.9 Sodium 140 144 Potassium 3.5 3.2 L Chloride 112 H 115 H Carbon Dioxide 17 L 21 L Anion Gap 11 8 BUN 44 H D 37 H Creatinine 3.51 H 3.28 H Estim Creat Clear Calc 13 14 Estimated GFR 13 L 14 L Glucose 140 H 85 Calcium 8.0 L 7.5 L Phosphorus 3.3 3.5 Magnesium 1.4 L Total Bilirubin 0.4 AST 19 ALT < 6 L < 6 L Alkaline Phosphatase 44 Total Protein 5.8 L Albumin 3.6 3.2 L Quality VTE Prophylaxis VTE prophylaxis: mechanical ordered
[2024-10-03] MEDS: SODIUM BICARBONATE TAB 650 MG TABLET PO ×2 (08:43→17:07)
[2024-10-03] MEDS: SERTRALINE HCL 50 MG TABLET 100 MG PO (08:43)
[2024-10-03] MEDS: ROSUVASTATIN 20 MG TABLET PO (08:43)
[2024-10-03] MEDS: SERTRALINE HCL 25 MG TABLET PO (08:43)
[2024-10-03] MEDS: POTASSIUM CHLORIDE 20 MEQ ER TABLET 40 MEQ PO (08:46)
[2024-10-03] MEDS: cefTRIAXone 1 GM in SODIUM CHLORIDE 0.9% IV 50 ML 100 ML IVPB (08:46)
--- NOTE | 2024-10-03 09:40 | PC.NURSE ---
This patient, Amanda Mccabe, was received from [facility] on 10/03/24 at 0940. Patient/family oriented to unit policies and routines. Report received from SALINA Zhou.
[2024-10-03 10:00] VITALS: BP 145/69; PULSE 74; RESP 20; TEMP 36.2; O2SAT 100
[2024-10-03] MEDS: EPOETIN ALFA-EPBX 10,000 UNITS/ML VIAL 10000 UNITS SUB-Q (10:39)
--- NOTE | 2024-10-03 14:01 | P.PNNP_ITS ---
Progress Note: A&P Assessment and Plan (1) Acute kidney injury: Code(s): N17.9 - Acute kidney failure, unspecified Status: Acute Assessment and Plan: * slow improvement noted * as noted on admission - creatinine 7.8mg/dL * creatinine 1.03mg/dL in early May 2024 * suspect multifactorial etiology: * obstruction (in the context of a solitary kidney) * nephrolithiasis * prerenal factors (nausea/vomiting x 1 week prior to presentation) * infection (UTI?) * other(?) * s/p intervention by Urology regarding kidney stone and left hydronephrosis * evaluation to date noted: * renal ultrasound with still with left hydronephrosis * urine electrolytes non-prerenal * urine eosinophils negative * CPK normal * ++ proteinuria * continue with IVFs for now * given the severity of her FABIEN/ARF, she may have a new baseline creatinine... * follow trend of repeat labs and UOP (2) Nephrolithiasis: Code(s): N20.0 - Calculus of kidney Status: Acute Assessment and Plan: * 6 mm stone in mid left ureter with single kidney status * s/p ureteral stenting on 09/30 * more definitive treatment of stone at a later date... * Urology following (3) Metabolic acidosis: Code(s): E87.20 - Acidosis, unspecified Status: Acute Assessment and Plan: * resolving * as noted on admission * likely secondary to FABIEN/ARF * attempting to compensate with oral sodium bicarbonate * follow CO2 levels (4) Anemia: Code(s): D64.9 - Anemia, unspecified Status: Acute Assessment and Plan: * possibly related to FABIEN along with acute illness * possibly dilutional from IVFs as well * anemia studies with adequate iron stores * intermittent KOBE dosing while hospitalized * follow trend of H/H (5) UTI (urinary tract infection): Qualifiers: Urinary tract infection type: acute cystitis Hematuria presence: with hematuria Qualified Code(s): N30.01 - Acute cystitis with hematuria Code(s): N39.0 - Urinary tract infection, site not specified Status: Acute Assessment and Plan: * admission UA suggestive * urine culture with GNB * on antibiotics (6) Solitary kidney: Status: Chronic Assessment and Plan: * s/p right nephrectomy (due to metastatic cervical cancer with spread to the colon and right kidney) Will continue to follow. L Subjective Date/time seen: 10/03/24 14:01 Interval history: Follow-up for acute kidney injury/acute renal failure. Only major complaint at the time of my visit is that of mild lower abdominal pain and generalized fatigue/weakness; renal function/creatinine continue to slowly improve with current therapy/interventions; H/H remains low (but just started on Epogen); no other acute issues/events overnight or earlier this morning. Exam 2 Narrative: General: elderly but WD/WN female in NAD Heart: normal S1 and S2; no rub Lungs: clear to auscultation Abdomen: soft, nontender, nondistended, positive bowel sounds Extremities: no cyanosis or clubbing; no edema Skin: warm and intact Objective Data Vital Signs Vital Signs: Vital Signs Temp Pulse Resp BP Pulse Ox O2 Del Method 10/03/24 14:00 98 F 74 20 140/68 100 10/03/24 10:00 97.2 F L 74 20 145/69 H 100 10/03/24 08:00 Room Air 10/03/24 07:50 98.4 F 70 18 132/61 98 10/02/24 23:41 98.4 F 74 16 131/61 99 10/02/24 20:00 68 10/02/24 20:00 68 16 99 Room Air 10/02/24 19:57 98.1 F 90 16 154/63 H 99 Intake/Output Intake/Output: Intake & Output 09/30/24 10/01/24 10/02/24 10/03/24 23:59 23:59 23:59 23:59 Intake Total 1200 3705.0 5720 2493.3 Output Total 2450 2950 1050 Balance 1200 1255.0 2770 1443.3 Meds/Results Medications: Active Medications Generic Name Dose Route Start Last Admin Trade Name Freq PRN Reason Stop Dose Admin Epoetin Gustavo-epbx 10,000 units 10/03/24 09:00 10/03/24 10:39 Epoetin Gustavo-Epbx 10,000 Units/Ml Vial SUB-Q 10,000 units TUTHSA@09 YUDELKA Administration Sodium Chloride 1,000 mls @ 100 mls/hr 09/30/24 19:15 10/03/24 17:07 Normal Saline Iv IV CONT 100 mls/hr .Q10H YUDELKA Administration Ceftriaxone Sodium 1 gm/ 50 mls @ 100 mls/hr 10/01/24 09:00 10/03/24 09:16 Sodium Chloride IVPB Infused Q24H YUDELKA Infusion Loratadine 10 mg 09/30/24 22:38 Loratadine 10 Mg Tablet PO DAILY PRN allergy symptoms Morphine Sulfate 2 mg 09/30/24 19:11 10/02/24 23:09 Morphine Sulfate (*Crx) 2 Mg/Ml Inj IV PUSH 2 mg Q2H PRN Administration Pain Rated 7-10 Ondansetron HCl 4 mg 09/30/24 19:11 Ondansetron Inj 4 Mg/2 Ml Vial IV PUSH Q4H PRN Nausea Rosuvastatin Calcium 20 mg 10/01/24 09:00 10/03/24 08:43 Rosuvastatin 20 Mg Tablet PO 20 mg DAILY YUDELKA Administration Sertraline HCl 100 mg 10/01/24 09:00 10/03/24 08:43 Sertraline Hcl 50 Mg Tablet PO 100 mg DAILY YUDELKA Administration Sertraline HCl 25 mg 10/01/24 09:00 10/03/24 08:43 Sertraline Hcl 25 Mg Tablet PO 25 mg DAILY YUDELKA Administration Sodium Bicarbonate 650 mg 10/02/24 17:00 10/03/24 17:07 Sodium Bicarbonate Tab 650 Mg Tablet PO 650 mg BID YUDELKA Administration Trazodone HCl 100 mg 09/30/24 22:33 10/02/24 20:11 Trazodone Hcl 50 Mg Tablet PO 100 mg QHS PRN Administration Insomnia Radiology Results: ITS Impressions Abdomen/Pelvis CT 09/30/24 18:05 IMPRESSION: 1. Obstructing 304 mm left ureteral stone with moderate left hydroureteronephrosis. 2. Status post right nephrectomy and partial colectomy with left lower quadrant and colostomy. 3. Soft tissue density replacing the presacral fat between the heart and pelvic loops of small bowel in the sacrum which could represent postoperative scarring or potentially recurrent malignancy in the appropriate clinical setting. Correlate with prior clinical/operative history. 4. L5 spondylolysis with bilateral pars interarticularis defects, 6 mm anterolisthesis L5 on S1 and spondylosis. Retrograde Pyelogram 10/01/24 09:02 IMPRESSION: 1. Left internal ureteral stent placement. Please refer to real-time procedural findings for details. Renal Ultrasound 10/02/24 09:25 Impression: 1: Moderate left hydronephrosis. Labs Labs: Laboratory Tests 10/03/24 03:15 10/03/24 03:15 Calcium 7.5 L Phosphorus 3.5 Magnesium 1.4 L Total Bilirubin 0.4 AST 19 ALT < 6 L Alkaline Phosphatase 44 Total Protein 5.8 L Albumin 3.2 L Microbiology 09/30/24 16:52 Urine Clean Catch - Preliminary Gram negative bacilli isolated
[2024-10-03 16:00] VITALS: BP 140/68; PULSE 74; RESP 20; TEMP 36.6; O2SAT 100
[2024-10-03] MEDS: MAGNESIUM OXIDE 200 MG TABLET PO (17:07)
[2024-10-03 21:20] VITALS: BP 129/69; PULSE 100; RESP 19; TEMP 36.4; O2SAT 99
[2024-10-03] MEDS: MORPHINE SULFATE (*CRX) 2 MG/ML INJ IV PUSH (22:23)
[2024-10-04] MEDS: SODIUM CHLORIDE 0.9% IV 1,000 ML 100 ML IV CONT ×2 (03:16→16:37)
[2024-10-04 04:55] VITALS: BP 135/65; PULSE 82; RESP 20; TEMP 36.3; O2SAT 98
[2024-10-04 06:05] LABS: Hematocrit 25.9 % (37.0-47.0); Hemoglobin 7.9 g/dL (12.0-15.0); Immature Granulocyte Percent A 2.6 % (0-0.5); Immature Platelet Fraction Pct 1.6 % (0.9-11.2); Lymphocytes Absolute Auto 1.36 K/mm3 (0.9-3.2); Mean Corpuscular HGB Conc 30.5 g/dl (32-36); Mean Corpuscular Hemoglobin 28.7 pg (26-34); Mean Corpuscular Volume 94.2 fl (80-100); Nucleated Red Blood Cells Absolute Auto 0.000 K/mm3 (0.0-0.012); Nucleated Red Blood Cells Perc 0.0 % (0.0-0.2); Platelet Count Result 99 k/mm3 (150-375); Red Blood Count 2.75 M/mm3 (4.2-5.4); White Blood Count 4.7 K/mm3 (4.5-10.0)
[2024-10-04 06:59] LABS: Albumin Level 3.4 g/dL (3.5-5.1); Alkaline Phosphatase 48 U/L (38-126); Anion Gap 7 mmol/L (4-12); Aspartate Amino Transferase 19 U/L (14-36); Bilirubin,Total 0.4 mg/dL (0.2-1.3); Blood Urea Nitrogen 23 mg/dL (7-17); Calcium 7.6 mg/dL (8.4-10.2); Carbon Dioxide 20 mmol/L (22-30); Chloride 113 mmol/L (98-107); Estimated CRCL calculation 19 ml/min; Estimated Glomerular Filt Rate 21; Glucose 85 mg/dL (65-110); Magnesium 1.1 mg/dL (1.6-2.3); Potassium 3.4 mmol/L (3.4-5.0); Sodium 140 mmol/L (137-145); Total Protein 6.1 g/dL (6.3-8.2)
--- NOTE | 2024-10-04 07:12 | P.PNIM_ITS ---
Progress Note: A&P Assessment and Plan (1) FABIEN (acute kidney injury): Code(s): N17.9 - Acute kidney failure, unspecified Status: Acute Assessment and Plan: * admit Creatinine 7.8 with usual baseline around 1 per Urology record * N/V for 7 days prior to ER presentation * history of R nephrectomy * Non-contrast CT scan showed obstructing left ureteral stone with hydronephrosis * management of ureteral stone as below * nephrology consulted - appreciate further recommendations * IV fluid 100 mL/hr post operatively * avoid NSAIDs * 10/04: Cr -> 2.35 (2) Ureterolithiasis: Code(s): N20.1 - Calculus of ureter Status: Acute Assessment and Plan: * 6 mm stone in mid left ureter with single kidney status * s/p urgent L ureteral stent placement by Dr. Adams 10/01/24 * plan for definitive for stone management after medical stabilization * Plan for KUB in 1 week * No plan for additional inpatient surgical intervention * Follow up with Dr. Arana following KUB as an outpatient for definitive stone treatment (3) Hypomagnesemia: Code(s): E83.42 - Hypomagnesemia Status: Acute Assessment and Plan: * Upon admission, Mg = 2.0 * 10/04: 2.0 -> 1.4 - > 1.1 * Given oral supplementation on 10/03 given solitary kidney * Will give additional supplementation today (2gm IV) continue to monitor (4) UTI (urinary tract infection): Qualifiers: Hematuria presence: with hematuria Urinary tract infection type: acute cystitis Qualified Code(s): N30.01 - Acute cystitis with hematuria Code(s): N39.0 - Urinary tract infection, site not specified Status: Acute Assessment and Plan: * UA with 2+ LE, 11-20 WBC * patient complaining of dysuria * received Ancef perioperatively. Start IV Rocephin, await urine culture. * Urine culture shows growth of Gram-negative bacilli, waiting on susceptibility (5) History of colon cancer: Code(s): Z85.038 - Personal history of other malignant neoplasm of large intestine Status: Chronic Assessment and Plan: * S/P resection and colostomy due to previously treated colon cancer (6) Single kidney: Code(s): Z90.5 - Acquired absence of kidney Status: Chronic Assessment and Plan: * S/P right nephrectomy for mass/colon cancer (7) Anemia: Code(s): D64.9 - Anemia, unspecified Status: Acute Assessment and Plan: * 9.4 on admit. No baseline to review. * likely due to hematuria and hemodilution * monitor CBC * transfuse Hgb <7 * 10/04: Hgb 7.9 * Nephrology started Retacrit, 1st dose this morning Plan Abnormal imaging: CT showed Soft tissue density replacing the presacral fat between the heart and pelvic loops of small bowel in the sacrum which could represent postoperative scarring or potentially recurrent malignancy in the appropriate clinical setting. Correlate with prior clinical/operative history. May benefit from repeat imaging as outpatient. DVT prophylaxis: SCDs Disposition: home in 2-3 days pending improvement of renal function Subjective Date/time seen: 10/04/24 07:13 Interval history: 63-year-old female patient who was admitted to the hospital due to acute renal failure. Patient presented to the emergency department complaining of nausea and vomiting for 7 days as well as left-sided abdominal pain. On chemistry panel patient found to have creatinine of 7.8. 10/04/2024 Patient sitting comfortably in bed at time of exam. Denies any chest, n/v, SOB today. Still some slight abdmoinal pain but overall improved. Magnesium low at 1.1, after oral supplementation yesterday. Will give 2gm IV and reassess magnesium levels after Mg supp is completed. Overall pt is doing well, expect discharge within the next 24 hours. Review of Systems Review of Systems: All systems reviewed & are unremarkable except as noted in HPI and below Exam Narrative: General: NAD Eyes: EOMI ENT: neck supple Cardiovascular: Regular rate and rhythm Respiratory: Clear to auscultation, respirations even and unlabored on RA Gastrointestinal: Soft, non tender Genitourinary: no suprapubic tenderness Musculoskeletal: No edema Skin: warm, dry Neuro: Alert. Psych: Mood appropriate Objective Data Vital Signs Vital Signs: Vital Signs - 24 hr 10/03/24 07:50 10/03/24 08:00 10/03/24 10:00 Temperature 98.4 F 97.2 F L Pulse Rate 70 74 Respiratory Rate 18 20 Blood Pressure 132/61 145/69 H Pulse Oximetry 98 100 Oxygen Delivery Room Air 10/03/24 16:00 10/03/24 21:20 10/03/24 22:00 Temperature 98 F 97.6 F Pulse Rate 74 100 Respiratory Rate 20 19 Blood Pressure 140/68 129/69 Pulse Oximetry 100 99 Oxygen Delivery Room Air Intake/Output Intake/Output: Intake & Output 10/01/24 10/02/24 10/03/24 10/04/24 23:59 23:59 23:59 23:59 Intake Total 3705.0 5720 2613.3 1200 Output Total 2450 2950 1050 Balance 1255.0 2770 1563.3 1200 Meds/Results Medications: Active Medications Generic Name Dose Route Start Last Admin Trade Name Freq PRN Reason Stop Dose Admin Epoetin Gustavo-epbx 10,000 units 10/03/24 09:00 10/03/24 10:39 Epoetin Gustavo-Epbx 10,000 Units/Ml Vial SUB-Q 10,000 units TUTHSA@09 YUDELKA Administration Sodium Chloride 1,000 mls @ 100 mls/hr 09/30/24 19:15 10/04/24 03:16 Normal Saline Iv IV CONT 100 mls/hr .Q10H YUDELKA Administration Ceftriaxone Sodium 1 gm/ 50 mls @ 100 mls/hr 10/01/24 09:00 10/03/24 09:16 Sodium Chloride IVPB Infused Q24H YUDELKA Infusion Loratadine 10 mg 09/30/24 22:38 Loratadine 10 Mg Tablet PO DAILY PRN allergy symptoms Morphine Sulfate 2 mg 09/30/24 19:11 10/03/24 22:23 Morphine Sulfate (*Crx) 2 Mg/Ml Inj IV PUSH 2 mg Q2H PRN Administration Pain Rated 7-10 Ondansetron HCl 4 mg 09/30/24 19:11 Ondansetron Inj 4 Mg/2 Ml Vial IV PUSH Q4H PRN Nausea Rosuvastatin Calcium 20 mg 10/01/24 09:00 10/03/24 08:43 Rosuvastatin 20 Mg Tablet PO 20 mg DAILY YUDELKA Administration Sertraline HCl 100 mg 10/01/24 09:00 10/03/24 08:43 Sertraline Hcl 50 Mg Tablet PO 100 mg DAILY YUDELKA Administration Sertraline HCl 25 mg 10/01/24 09:00 10/03/24 08:43 Sertraline Hcl 25 Mg Tablet PO 25 mg DAILY YUDELKA Administration Sodium Bicarbonate 650 mg 10/02/24 17:00 10/03/24 17:07 Sodium Bicarbonate Tab 650 Mg Tablet PO 650 mg BID YUDELKA Administration Trazodone HCl 100 mg 09/30/24 22:33 10/03/24 22:24 Trazodone Hcl 50 Mg Tablet PO 100 mg QHS PRN Administration Insomnia Radiology Results: ITS Impressions Abdomen/Pelvis CT 09/30/24 18:05 IMPRESSION: 1. Obstructing 304 mm left ureteral stone with moderate left hydroureteronephrosis. 2. Status post right nephrectomy and partial colectomy with left lower quadrant and colostomy. 3. Soft tissue density replacing the presacral fat between the heart and pelvic loops of small bowel in the sacrum which could represent postoperative scarring or potentially recurrent malignancy in the appropriate clinical setting. Correlate with prior clinical/operative history. 4. L5 spondylolysis with bilateral pars interarticularis defects, 6 mm anterolisthesis L5 on S1 and spondylosis. Retrograde Pyelogram 10/01/24 09:02 IMPRESSION: 1. Left internal ureteral stent placement. Please refer to real-time procedural findings for details. Renal Ultrasound 10/02/24 09:25 Impression: 1: Moderate left hydronephrosis. Labs Labs: Laboratory Results - last 24 hr 10/04/24 05:15 WBC 4.7 RBC 2.75 L Hgb 7.9 L Hct 25.9 L MCV 94.2 MCH 28.7 MCHC 30.5 L RDW 15.9 H Plt Count 99 L MPV 9.9 Immature Gran % (Auto) 2.6 H Neut % (Auto) 56.6 Lymph % (Auto) 29.2 [place] % (Auto) 6.7 Eos % (Auto) 4.5 H Baso % (Auto) 0.4 Lymph # (Auto) 1.36 [place] # (Auto) 0.3 Eos # (Auto) 0.2 Baso # (Auto) 0.0 Abs Immat Gran (auto) 0.12 H Absolute Neuts (auto) 2.6 Absolute Nucleated RBC 0.000 Nucleated RBC % 0.0 % Immature Plt Fraction 1.6 Sodium 140 Potassium 3.4 Chloride 113 H Carbon Dioxide 20 L Anion Gap 7 BUN 23 H D Creatinine 2.35 H Estim Creat Clear Calc 19 Estimated GFR 21 L Glucose 85 Calcium 7.6 L Phosphorus 2.5 Magnesium 1.1 L Total Bilirubin 0.4 AST 19 Alkaline Phosphatase 48 Total Protein 6.1 L Albumin 3.4 L Quality VTE Prophylaxis VTE prophylaxis: mechanical ordered
[2024-10-04 07:59] LABS: Alanine Aminotransferase < 6 U/L (6-35)
[2024-10-04] MEDS: cefTRIAXone 1 GM in SODIUM CHLORIDE 0.9% IV 50 ML 100 ML IVPB (08:51)
[2024-10-04] MEDS: SERTRALINE HCL 50 MG TABLET 100 MG PO (08:51)
[2024-10-04] MEDS: SODIUM BICARBONATE TAB 650 MG TABLET PO ×2 (08:52→16:37)
[2024-10-04] MEDS: SERTRALINE HCL 25 MG TABLET PO (08:52)
[2024-10-04] MEDS: ROSUVASTATIN 20 MG TABLET PO (08:52)
[2024-10-04] MEDS: POTASSIUM CHLORIDE 20 MEQ ER TABLET 40 MEQ PO (09:10)
[2024-10-04] MEDS: MAGNESIUM SULF 2 GM/WATER 50ML 2 GM/50 ML BAG IVPB (10:14)
--- NOTE | 2024-10-04 10:25 | P.PNNP_ITS ---
Progress Note: A&P Assessment and Plan (1) Acute kidney injury: Code(s): N17.9 - Acute kidney failure, unspecified Status: Acute Assessment and Plan: * slow improvement noted * as noted on admission - creatinine 7.8mg/dL * creatinine 1.03mg/dL in early May 2024 * suspect multifactorial etiology: * obstruction (in the context of a solitary kidney) * nephrolithiasis * prerenal factors (nausea/vomiting x 1 week prior to presentation) * infection (UTI) * other(?) * s/p intervention by Urology regarding kidney stone and left hydronephrosis * evaluation to date noted: * renal ultrasound still with left hydronephrosis (following stenting) * urine electrolytes non-prerenal * urine eosinophils negative * CPK normal * ++ proteinuria * continue with IVFs for now * given the severity of her FABIEN/ARF, she may have a new baseline creatinine... * follow trend of repeat labs and UOP (2) Nephrolithiasis: Code(s): N20.0 - Calculus of kidney Status: Acute Assessment and Plan: * 6 mm stone in mid left ureter with single kidney status * s/p ureteral stenting on 09/30 * more definitive treatment of stone at a later date... * Urology following (3) Metabolic acidosis: Code(s): E87.20 - Acidosis, unspecified Status: Acute Assessment and Plan: * resolving * as noted on admission * likely secondary to FABIEN/ARF * attempting to compensate with oral sodium bicarbonate * wean sodiuim bicarb tabs as tolerated * follow CO2 levels (4) Anemia: Code(s): D64.9 - Anemia, unspecified Status: Acute Assessment and Plan: * possibly related to FABIEN along with acute illness * possibly dilutional from IVFs as well * anemia studies with adequate iron stores * intermittent KOBE dosing while hospitalized * follow trend of H/H (5) UTI (urinary tract infection): Qualifiers: Hematuria presence: with hematuria Urinary tract infection type: acute cystitis Qualified Code(s): N30.01 - Acute cystitis with hematuria Code(s): N39.0 - Urinary tract infection, site not specified Status: Acute Assessment and Plan: * admission UA suggestive * urine culture with GNB * on antibiotics (6) Solitary kidney: Status: Chronic Assessment and Plan: * s/p right nephrectomy (due to metastatic cervical cancer with spread to the colon and right kidney) Will continue to follow. L Subjective Date/time seen: 10/04/24 10:25 Interval history: Follow-up for acute kidney injury/acute renal failure. Renal function/creatinine continues to slowly improve with current interventions/therapy; no acute issues or problems voiced at the time of my visit other than mild lower abdominal discomfort; remains hemodynamically stable with improvement in H/H as well. Exam 2 Narrative: General: elderly but WD/WN female in NAD Heart: normal S1 and S2; no rub Lungs: clear to auscultation Abdomen: soft, nontender, nondistended, positive bowel sounds Extremities: no cyanosis or clubbing; no edema Skin: no rash Objective Data Vital Signs Vital Signs: Vital Signs Temp Pulse Resp BP Pulse Ox O2 Del Method 10/04/24 08:00 Room Air 10/04/24 04:55 97.3 F L 82 20 135/65 98 10/03/24 22:00 Room Air 10/03/24 21:20 97.6 F 100 19 129/69 99 10/03/24 16:00 98 F 74 20 140/68 100 Intake/Output Intake/Output: Intake & Output 10/01/24 10/02/24 10/03/24 10/04/24 23:59 23:59 23:59 23:59 Intake Total 3705.0 5720 2613.3 1540 Output Total 2450 2950 1050 Balance 1255.0 2770 1563.3 1540 Meds/Results Medications: Active Medications Generic Name Dose Route Start Last Admin Trade Name Freq PRN Reason Stop Dose Admin Epoetin Gustavo-epbx 10,000 units 10/03/24 09:00 10/03/24 10:39 Epoetin Gustavo-Epbx 10,000 Units/Ml Vial SUB-Q 10,000 units TUTHSA@09 YUDELKA Administration Sodium Chloride 1,000 mls @ 100 mls/hr 09/30/24 19:15 10/04/24 03:16 Normal Saline Iv IV CONT 100 mls/hr .Q10H YUDELKA Administration Ceftriaxone Sodium 1 gm/ 50 mls @ 100 mls/hr 10/01/24 09:00 10/04/24 09:21 Sodium Chloride IVPB Infused Q24H YUDELKA Infusion Loratadine 10 mg 09/30/24 22:38 Loratadine 10 Mg Tablet PO DAILY PRN allergy symptoms Morphine Sulfate 2 mg 09/30/24 19:11 10/03/24 22:23 Morphine Sulfate (*Crx) 2 Mg/Ml Inj IV PUSH 2 mg Q2H PRN Administration Pain Rated 7-10 Ondansetron HCl 4 mg 09/30/24 19:11 Ondansetron Inj 4 Mg/2 Ml Vial IV PUSH Q4H PRN Nausea Rosuvastatin Calcium 20 mg 10/01/24 09:00 10/04/24 08:52 Rosuvastatin 20 Mg Tablet PO 20 mg DAILY YUDELKA Administration Sertraline HCl 100 mg 10/01/24 09:00 10/04/24 08:51 Sertraline Hcl 50 Mg Tablet PO 100 mg DAILY YUDELKA Administration Sertraline HCl 25 mg 10/01/24 09:00 10/04/24 08:52 Sertraline Hcl 25 Mg Tablet PO 25 mg DAILY YUDELKA Administration Sodium Bicarbonate 650 mg 10/02/24 17:00 10/04/24 08:52 Sodium Bicarbonate Tab 650 Mg Tablet PO 650 mg BID YUDELKA Administration Trazodone HCl 100 mg 09/30/24 22:33 10/03/24 22:24 Trazodone Hcl 50 Mg Tablet PO 100 mg QHS PRN Administration Insomnia Radiology Results: ITS Impressions Abdomen/Pelvis CT 09/30/24 18:05 IMPRESSION: 1. Obstructing 304 mm left ureteral stone with moderate left hydroureteronephrosis. 2. Status post right nephrectomy and partial colectomy with left lower quadrant and colostomy. 3. Soft tissue density replacing the presacral fat between the heart and pelvic loops of small bowel in the sacrum which could represent postoperative scarring or potentially recurrent malignancy in the appropriate clinical setting. Correlate with prior clinical/operative history. 4. L5 spondylolysis with bilateral pars interarticularis defects, 6 mm anterolisthesis L5 on S1 and spondylosis. Retrograde Pyelogram 10/01/24 09:02 IMPRESSION: 1. Left internal ureteral stent placement. Please refer to real-time procedural findings for details. Renal Ultrasound 10/02/24 09:25 Impression: 1: Moderate left hydronephrosis. Labs Labs: Laboratory Tests 10/04/24 05:15 10/04/24 05:15 Calcium 7.6 L Phosphorus 2.5 Magnesium 1.1 L Total Bilirubin 0.4 AST 19 ALT < 6 L Alkaline Phosphatase 48 Total Protein 6.1 L Albumin 3.4 L
--- NOTE | 2024-10-04 12:02 | PCNFU ---
Nutrition Follow-Up Complete: Moderate protein calorie malnutrition related to inadequate energy intake as evidenced by pt report of poor po intake greater than 1 month, a significant weight loss of -15% x 3 months, and NFPE findings for moderate subcutaneous fat loss and moderate muscle wasting. PO intake 50% or greater - Slow progress to goal. Continue with same goal Goal: Pt current nutrition is Renal diet. Nepro BID (420 kcal, 19 g protein). Nutrition recommendation: NO NEw recommendations. Continue current nutrition care plan and orders. Agree with orders Last recorded weight is 67 kg. Bowel Motility: +1 BM 09/28. May benefit from bowel regimen Labs Reviewed: Hgb 7.9, Hct 25.9, BUN 23, Cre 2.35 Meds Noted: NS, Zofran Skin: WNL Additional Notes: Intakes 0-100%. Supplements are on board. No bowel movements, may need bowel regimen. Agree with orders Monitor intake, wt, labs. follow up in 3 days.
[2024-10-04 15:24] VITALS: BP 128/63; PULSE 77; RESP 18; TEMP 36.7; O2SAT 100
[2024-10-04 21:15] VITALS: BP 155/69; PULSE 72; RESP 14; TEMP 36.6; O2SAT 100
[2024-10-05] MEDS: SODIUM CHLORIDE 0.9% IV 1,000 ML 100 ML IV CONT (03:08)
[2024-10-05 04:25] VITALS: BP 113/51; PULSE 74; RESP 14; TEMP 36.3; O2SAT 100
[2024-10-05 05:30] LABS: Hematocrit 24.4 % (37.0-47.0); Hemoglobin 7.2 g/dL (12.0-15.0); Immature Granulocyte Percent A 3.9 % (0-0.5); Lymphocytes Absolute Auto 0.94 K/mm3 (0.9-3.2); Mean Corpuscular HGB Conc 29.5 g/dl (32-36); Mean Corpuscular Hemoglobin 27.8 pg (26-34); Mean Corpuscular Volume 94.2 fl (80-100); Nucleated Red Blood Cells Absolute Auto 0.020 K/mm3 (0.0-0.012); Nucleated Red Blood Cells Perc 0.5 % (0.0-0.2); Platelet Count Result 109 k/mm3 (150-375); Red Blood Count 2.59 M/mm3 (4.2-5.4); White Blood Count 4.4 K/mm3 (4.5-10.0)
[2024-10-05 05:53] LABS: Albumin Level 3.2 g/dL (3.5-5.1); Alkaline Phosphatase 41 U/L (38-126); Anion Gap 8 mmol/L (4-12); Aspartate Amino Transferase 20 U/L (14-36); Bilirubin,Total 0.3 mg/dL (0.2-1.3); Blood Urea Nitrogen 15 mg/dL (7-17); Calcium 7.5 mg/dL (8.4-10.2); Carbon Dioxide 22 mmol/L (22-30); Chloride 112 mmol/L (98-107); Estimated CRCL calculation 23 ml/min; Estimated Glomerular Filt Rate 26; Glucose 83 mg/dL (65-110); Magnesium 1.6 mg/dL (1.6-2.3); Potassium 3.5 mmol/L (3.4-5.0); Sodium 142 mmol/L (137-145); Total Protein 5.9 g/dL (6.3-8.2)
[2024-10-05 05:55] LABS: Anisocytosis 1+; Microcytosis 1+ (NORMAL); Schistocytes None Seen
[2024-10-05 08:41] LABS: Alanine Aminotransferase < 6 U/L (6-35)
[2024-10-05] MEDS: SERTRALINE HCL 25 MG TABLET PO (09:01)
[2024-10-05] MEDS: cefTRIAXone 1 GM in SODIUM CHLORIDE 0.9% IV 50 ML 100 ML IVPB (09:01)
[2024-10-05] MEDS: ROSUVASTATIN 20 MG TABLET PO (09:01)
[2024-10-05] MEDS: EPOETIN ALFA-EPBX 10,000 UNITS/ML VIAL 10000 UNITS SUB-Q (09:01)
[2024-10-05] MEDS: SERTRALINE HCL 50 MG TABLET 100 MG PO (09:01)
[2024-10-05] MEDS: SODIUM BICARBONATE TAB 650 MG TABLET PO (09:01)
[2024-10-05 10:37] VITALS: BP 118/67; PULSE 78; RESP 18; TEMP 36.4; O2SAT 99
--- NOTE | 2024-10-05 11:04 | P.PNNP_ITS ---
Progress Note: A&P Assessment and Plan (1) Acute kidney injury: Code(s): N17.9 - Acute kidney failure, unspecified Status: Acute Assessment and Plan: * slow improvement noted * as noted on admission - creatinine 7.8mg/dL * creatinine 1.03mg/dL in early May 2024 * suspect multifactorial etiology: * obstruction (in the context of a solitary kidney) * nephrolithiasis * prerenal factors (nausea/vomiting x 1 week prior to presentation) * infection (UTI) * other(?) * s/p intervention by Urology regarding kidney stone and left hydronephrosis * evaluation to date noted: * renal ultrasound still with left hydronephrosis (following stenting) * urine electrolytes non-prerenal * urine eosinophils negative * CPK normal * ++ proteinuria * continue with IVFs for now * given the severity of her FABIEN/ARF, she may have a new baseline creatinine, but her numbers continue to improve every day.. * follow trend of repeat labs and UOP (2) Nephrolithiasis: Code(s): N20.0 - Calculus of kidney Status: Acute Assessment and Plan: * 6 mm stone in mid left ureter with single kidney status * s/p ureteral stenting on 09/30 * more definitive treatment of stone at a later date... * Urology following (3) Metabolic acidosis: Code(s): E87.20 - Acidosis, unspecified Status: Acute Assessment and Plan: * resolving * getting oral bicarbonate. * CO2 up to 22 (4) Anemia: Code(s): D64.9 - Anemia, unspecified Status: Acute Assessment and Plan: * possibly related to FABIEN along with acute illness * possibly dilutional from IVFs as well * anemia studies with adequate iron stores * Getting scheduled Epogen. * Check a hemoglobin tomorrow (5) UTI (urinary tract infection): Qualifiers: Urinary tract infection type: acute cystitis Hematuria presence: with hematuria Qualified Code(s): N30.01 - Acute cystitis with hematuria Code(s): N39.0 - Urinary tract infection, site not specified Status: Acute Assessment and Plan: * admission UA suggestive * urine culture with GNB * on ceftriaxone (6) Solitary kidney: Status: Chronic Assessment and Plan: * s/p right nephrectomy (due to metastatic cervical cancer with spread to the colon and right kidney) Will continue to follow. Subjective Date/time seen: 10/05/24 11:04 Interval history: Amanda is feeling better. No more nausea. Some abdominal discomfort but it is getting Exam Narrative: General: elderly but WD/WN female in NAD Heart: normal S1 and S2; no rub or gallop Lungs: clear bilaterally Abdomen: soft, nontender, nondistended, positive bowel sounds Extremities: no cyanosis or clubbing; no edema Skin: no rash or subcu nodule Objective Data Vital Signs Vital Signs: Vital Signs - 24 hr 10/04/24 15:24 10/04/24 20:00 10/04/24 21:15 Temperature 98.1 F 97.9 F Pulse Rate 77 72 Respiratory Rate 18 14 Blood Pressure 128/63 155/69 H Pulse Oximetry 100 100 Oxygen Delivery Room Air 10/05/24 04:25 10/05/24 09:00 10/05/24 10:37 Temperature 97.3 F L 97.6 F Pulse Rate 74 78 Respiratory Rate 14 18 Blood Pressure 113/51 L 118/67 Pulse Oximetry 100 99 Oxygen Delivery Room Air Intake/Output Intake/Output: Intake & Output 10/02/24 10/03/24 10/04/24 10/05/24 23:59 23:59 23:59 23:59 Intake Total 5720 2613.3 3530 1450 Output Total 2950 1050 Balance 2770 1563.3 3530 1450 Meds/Results Medications: Active Medications Generic Name Dose Route Start Last Admin Trade Name Freq PRN Reason Stop Dose Admin Epoetin Gustavo-epbx 10,000 units 10/03/24 09:00 10/05/24 09:01 Epoetin Gustavo-Epbx 10,000 Units/Ml Vial SUB-Q 10,000 units TUTHSA@09 YUDELKA Administration Sodium Chloride 1,000 mls @ 100 mls/hr 09/30/24 19:15 10/05/24 09:24 Normal Saline Iv IV CONT Not Given .Q10H [facility] Ceftriaxone Sodium 1 gm/ 50 mls @ 100 mls/hr 10/01/24 09:00 10/05/24 09:01 Sodium Chloride IVPB 100 mls/hr Q24H YUDELKA Administration Loratadine 10 mg 09/30/24 22:38 Loratadine 10 Mg Tablet PO DAILY PRN allergy symptoms Morphine Sulfate 2 mg 09/30/24 19:11 10/03/24 22:23 Morphine Sulfate (*Crx) 2 Mg/Ml Inj IV PUSH 2 mg Q2H PRN Administration Pain Rated 7-10 Ondansetron HCl 4 mg 09/30/24 19:11 Ondansetron Inj 4 Mg/2 Ml Vial IV PUSH Q4H PRN Nausea Rosuvastatin Calcium 20 mg 10/01/24 09:00 10/05/24 09:01 Rosuvastatin 20 Mg Tablet PO 20 mg DAILY YUDELKA Administration Sertraline HCl 100 mg 10/01/24 09:00 10/05/24 09:01 Sertraline Hcl 50 Mg Tablet PO 100 mg DAILY YUDELKA Administration Sertraline HCl 25 mg 10/01/24 09:00 10/05/24 09:01 Sertraline Hcl 25 Mg Tablet PO 25 mg DAILY YUDELKA Administration Sodium Bicarbonate 650 mg 10/02/24 17:00 10/05/24 09:01 Sodium Bicarbonate Tab 650 Mg Tablet PO 650 mg BID YUDELKA Administration Trazodone HCl 100 mg 09/30/24 22:33 10/04/24 22:38 Trazodone Hcl 50 Mg Tablet PO 100 mg QHS PRN Administration Insomnia Radiology Results: ITS Impressions Abdomen/Pelvis CT 09/30/24 18:05 IMPRESSION: 1. Obstructing 304 mm left ureteral stone with moderate left hydroureteronephrosis. 2. Status post right nephrectomy and partial colectomy with left lower quadrant and colostomy. 3. Soft tissue density replacing the presacral fat between the heart and pelvic loops of small bowel in the sacrum which could represent postoperative scarring or potentially recurrent malignancy in the appropriate clinical setting. Correlate with prior clinical/operative history. 4. L5 spondylolysis with bilateral pars interarticularis defects, 6 mm anterolisthesis L5 on S1 and spondylosis. Retrograde Pyelogram 10/01/24 09:02 IMPRESSION: 1. Left internal ureteral stent placement. Please refer to real-time procedu ral findings for details. Renal Ultrasound 08/27/25 09:25 Impression: 1: Moderate left hydronephrosis. Labs Labs: Laboratory Results - last 24 hr 10/05/24 04:58 WBC 4.4 L RBC 2.59 L Hgb 7.2 L Hct 24.4 L MCV 94.2 MCH 27.8 MCHC 29.5 L RDW 15.9 H Plt Count 109 L MPV 10.0 Immature Gran % (Auto) 3.9 H Neut % (Auto) 60.6 Lymph % (Auto) 21.6 [place] % (Auto) 8.3 Eos % (Auto) 5.1 H Baso % (Auto) 0.5 Lymph # (Auto) 0.94 [place] # (Auto) 0.4 Eos # (Auto) 0.2 Baso # (Auto) 0.0 Abs Immat Gran (auto) 0.17 H Absolute Neuts (auto) 2.6 Absolute Nucleated RBC 0.020 H Band Neutrophils % Not Reportable Nucleated RBC % 0.5 H Platelet Estimate Slightly decreased Anisocytosis 1+ Microcytosis 1+ Schistocytes None seen Sodium 142 Potassium 3.5 Chloride 112 H Carbon Dioxide 22 Anion Gap 8 BUN 15 D Creatinine 1.92 H Estim Creat Clear Calc 23 Estimated GFR 26 L Glucose 83 Calcium 7.5 L Phosphorus 2.2 L Magnesium 1.6 Total Bilirubin 0.3 AST 20 ALT < 6 L Alkaline Phosphatase 41 Total Protein 5.9 L Albumin 3.2 L
--- NOTE | 2024-10-05 11:44 | P.DS_ITS ---
DS: Admitting Diagnosis Discharge Date 10/05/2024 Admitting Diagnosis FABIEN, urolithiasis, UTI DS: Discharge Diagnosis Discharge Diagnosis (1) FABIEN (acute kidney injury): Code(s): N17.9 - Acute kidney failure, unspecified Status: Acute Assessment and Plan: * admit Creatinine 7.8 with usual baseline around 1 per Urology record * N/V for 7 days prior to ER presentation * history of R nephrectomy * Non-contrast CT scan showed obstructing left ureteral stone with hydronephrosis * management of ureteral stone as below * nephrology consulted - appreciate further recommendations * IV fluid 100 mL/hr post operatively * avoid NSAIDs * 10/04: Cr -> 2.35 (2) Ureterolithiasis: Code(s): N20.1 - Calculus of ureter Status: Acute Assessment and Plan: * 6 mm stone in mid left ureter with single kidney status * s/p urgent L ureteral stent placement by Dr. Adams 10/01/24 * plan for definitive for stone management after medical stabilization * Plan for KUB in 1 week * No plan for additional inpatient surgical intervention * Follow up with Dr. Arana following KUB as an outpatient for definitive stone treatment (3) Hypomagnesemia: Code(s): E83.42 - Hypomagnesemia Status: Acute Assessment and Plan: * Upon admission, Mg = 2.0 * 10/04: 2.0 -> 1.4 - > 1.1 * Given oral supplementation on 10/03 given solitary kidney * Will give additional supplementation today (2gm IV) continue to monitor (4) UTI (urinary tract infection): Qualifiers: Hematuria presence: with hematuria Urinary tract infection type: acute cystitis Qualified Code(s): N30.01 - Acute cystitis with hematuria Code(s): N39.0 - Urinary tract infection, site not specified Status: Acute Assessment and Plan: * UA with 2+ LE, 11-20 WBC * patient complaining of dysuria * received Ancef perioperatively. Start IV Rocephin, await urine culture. * Urine culture shows growth of Gram-negative bacilli, waiting on susceptibility (5) History of colon cancer: Code(s): Z85.038 - Personal history of other malignant neoplasm of large intestine Status: Chronic Assessment and Plan: * S/P resection and colostomy due to previously treated colon cancer (6) Single kidney: Code(s): Z90.5 - Acquired absence of kidney Status: Chronic Assessment and Plan: * S/P right nephrectomy for mass/colon cancer (7) Anemia: Code(s): D64.9 - Anemia, unspecified Status: Acute Assessment and Plan: * 9.4 on admit. No baseline to review. * likely due to hematuria and hemodilution * monitor CBC * transfuse Hgb <7 * 8/29: Hgb 7.9 * Nephrology started Retacrit, 1st dose this morning Plan Abnormal imaging: CT showed Soft tissue density replacing the presacral fat between the heart and pelvic loops of small bowel in the sacrum which could represent postoperative scarring or potentially recurrent malignancy in the appropriate clinical setting. Correlate with prior clinical/operative history. May benefit from repeat imaging as outpatient. DVT prophylaxis: SCDs Disposition: home in 2-3 days pending improvement of renal function DS: Summary Hospital Course Reason for hospitalization: Nausea/vomiting Hospital Course: This is a 63-year-old female patient who was admitted to the hospital due to acute renal failure. Patient presented to the emergency department complaining of nausea and vomiting for 7 days as well as left-sided abdominal pain. On chemistry panel patient found to have creatinine of 7.8. CT scan abdomen pelvis without contrast identifies an obstructing left ureteral stone with hydronephrosis and hydroureter. Patient previously underwent total right nephrectomy and right partial colectomy with colostomy placement for metastatic cervical cancer with spread to the colon and right kidney. Urology was consulted urgently by the emergency department and patient went to the operating room for left ureteral stent placement. Patient is evaluated postoperatively in her assigned room. Initial labs showed an anion gap of 25 with carbon dioxide down to 9. This obstruction has likely been in place for several days leading to her nausea and vomiting. After stent placement patient denies nausea and denies pain. She states that she has been able to drink some water and hold it down. Patient reports mild left ankle swelling which is chronic and comes and goes. She also reports that postprocedure she is noticing hematuria. She denies dysuria fever or chills. Additional medical history noted for pre diabetes, anxiety, depression, insomnia and elevated cholesterol. Additional surgical history elicited includes total hysterectomy. Patient admitted with IV fluids infusing to try to induce renal clearance of toxins and improve metabolic acidosis. On 09/30, patient was taken by urology for a cystoscopy with left ureteral stent placement. She tolerated the procedure well and a left ureteral stent was placed but no stone was visualized. Urology followed up with the patient in the hospital on 10/01. They plan for a KUB followup in 1 week and to follow up with Dr. Arana after the KUB for definitive stone treatment and/or stent management. They have no other plan for additional inpatient surgical intervention. Inpatient urology to follow peripherally. Nephrology was consulted regarding an acute kidney injury, presence of a solitary kidney and underlying anemia. Per nephrology, fabien likely multifactorial - obstruction/nephrolithiasis/prerenal factors/infection. Renal US was obtained on 10/02 which showed Moderate left hydronephrosis. Urine cultures were obtained and were positive for K. Pneumonia with susceptability to Augmentin. Throughout hospitalization, her kidney function continued to improve, with a Cr of 7.8 upon admission and 1.92 on 10/05. I discussed with Dr. Gonzalez regarding discharge parameters from a nephrology stand point and he agreed that patient is stable for discharge at this time. She has maintained appropriate diet without any complaints of n/v/d. She is hemodynamically stable and can be discharged with appropriate follow up with urology in the outpt setting. Plan for discharge now. Status at Discharge Functional status at discharge: independent ambulation Overall status at discharge: patient is back to baseline Time Spent with Patient Time attestation: Total time spent providing and/or coordinating discharge services: 41 Exam Narrative: General: NAD Eyes: EOMI ENT: neck supple Cardiovascular: Regular rate and rhythm Respiratory: Clear to auscultation, respirations even and unlabored on RA Gastrointestinal: Soft, non tender Genitourinary: no suprapubic tenderness Musculoskeletal: No edema Skin: warm, dry Neuro: Alert. Psych: Mood appropriate DS: Data Data Completed and Pending Labs on day of discharge: Labs from last 24 hours 10/05/24 04:58 WBC 4.4 L RBC 2.59 L Hgb 7.2 L Hct 24.4 L MCV 94.2 MCH 27.8 MCHC 29.5 L RDW 15.9 H Plt Count 109 L MPV 10.0 Immature Gran % (Auto) 3.9 H Neut % (Auto) 60.6 Lymph % (Auto) 21.6 [place] % (Auto) 8.3 Eos % (Auto) 5.1 H Baso % (Auto) 0.5 Lymph # (Auto) 0.94 [place] # (Auto) 0.4 Eos # (Auto) 0.2 Baso # (Auto) 0.0 Abs Immat Gran (auto) 0.17 H Absolute Neuts (auto) 2.6 Absolute Nucleated RBC 0.020 H Band Neutrophils % Not Reportable Nucleated RBC % 0.5 H Platelet Estimate Slightly decreased Anisocytosis 1+ Microcytosis 1+ Schistocytes None seen Sodium 142 Potassium 3.5 Chloride 112 H Carbon Dioxide 22 Anion Gap 8 BUN 15 D Creatinine 1.92 H Estim Creat Clear Calc 23 Estimated GFR 26 L Glucose 83 Calcium 7.5 L Phosphorus 2.2 L Magnesium 1.6 Total Bilirubin 0.3 AST 20 ALT < 6 L Alkaline Phosphatase 41 Total Protein 5.9 L Albumin 3.2 L Discharge Plan Discharge Attending physician on discharge: Maximilian Duran Consulting providers: Arthur Hdz; Kassie Thurston; Michel Early; Barrera Adams; Whit Melgoza Discharging Clinician: Michel Early Anticipated Discharge Date/Time: 10/05/24 11:39 Patient Disposition: Home Activity: as tolerated Diet: renal Discharge Instructions: Discharge disposition: Home Take medications as prescribed. You will be prescribed 5 days Augmentin to be taken twice daily. Monitor blood pressures Take caution while standing, rising, or moving Change positions slowly taking a break between each position change If you standing feel dizzy sit back down and take a break Encouraged to continue with yearly vaccinations Return to the emergency department if he developed sudden shortness of breath, chest pain, nausea, vomiting, upset stomach or intractable diarrhea Return to the emergency department if you develop fever greater than 101.5 Follow-up with the primary care physician within 1-2 weeks. Discuss with them regarding possible further need of Epogen for your anemia. Follow-up with urology, they have ordered an outpatient KUB to be taken within the next week. Contact urology is office after this x-ray has been completed for further stone treatment/stent management Thank you for [facility] for your healthcare needs Patient Language: Slovak Stand Alone Forms: General Discharge Information Follow-up/Referrals: PHYSICIAN,TRANSFER WORKER [Primary Care Provider, Internal Medicine] Harpal Arana MD [Physician, Urology] - 1 Week Referral Note: Left stent with 6mm stone Needs KUB prior to office visit Problems: Ureterolithiasis Discharge Medications: New amoxicillin-pot clavulanate 875-125 mg tablet 1 tablet PO Q12H 5 Days Qty: 10 0RF Continued trazodone 100 mg tablet 100 mg PO QHS PRN (Reason: insomnia) sertraline 25 mg tablet 25 mg PO DAILY sertraline 100 mg tablet 100 mg PO DAILY rosuvastatin 20 mg tablet 20 mg PO DAILY Qty: 90 1RF cetirizine 10 mg tablet 10 mg PO DAILY PRN (Reason: allergy symptoms) Qty: 90 0RF Other Ambulatory Orders: XR abdomen/kub 1V (Routine) Timeframe: 1 Week Facility: [facility] - Location: [facility] [place] Radiology Ordered By: Diane Raphael Date of admission: 10/01/24 08:33 Primary Care Provider: PHYSICIAN,TRANSFER WORKER Admitting Provider: Barrera Adams Attending physician on admission: Zac Carrillo Condition: Stable Quality VTE Prophylaxis VTE prophylaxis: mechanical ordered
== END 2024-10-05 12:38 | disposition home or self-care (01) | DRG 660 ==
LOC: ANHED 18:52 → ANHIMU 10-01 06:56 → ANHED 10-01 08:09 → ANHIMU 10-01 08:10 → ANH3MEDSUR 10-05 11:42 → ANHIMU 10-08 12:09
PROVIDERS: Emergency Medicine; Internal Medicine Nephrology; Nurse Practitioner; Urology; Admitting Provider Internal Medicine; Emergency Provider Emergency Medicine; Visit Provider General Practice
PROC: 0TJB8ZZ Inspection of Bladder, Via Natural or Artificial Opening Endoscopic (ICD-10-PCS; CPT 52000; principal; 2024-09-30 02:00)
DX: N13.6 Pyonephrosis (principal); E44.0 Moderate protein-calorie malnutrition; E87.20 Acidosis, unspecified; N17.9 Acute kidney failure, unspecified; I10 Essential (primary) hypertension; D64.9 Anemia, unspecified; E83.42 Hypomagnesemia; R73.03 Prediabetes; E78.5 Hyperlipidemia, unspecified; F32.A Depression, unspecified; Z85.41 Personal history of malignant neoplasm of cervix uteri; Z90.5 Acquired absence of kidney; Z90.49 Acquired absence of other specified parts of digestive tract; Z93.3 Colostomy status; Z68.24 Body mass index [BMI] 24.0-24.9, adult
CPT/HCPCS: 36415; 74176; 74420; 76770; 80053; 80069; 81001; 81050; 82550; 82570; 82607; 82728; 82746; 83540; 83550; 83605; 83690; 83735; 84100; 84156; 84300; 84540; 85025; 85055; 85999; 86850; 86900; 86901; 87086; 96361; 96374; 96375; 96376; 99285; J0690; A9270; C1769; C2617; G0378; J0696; J2003; J2250; J2270; J2405; J2704; J3010; J3475; J7030; J7120; Q5105